=== PATIENT | male | born 1950 | race Caucasian/White ===

== ENCOUNTER 2018-08-27 10:25 | Emergency (ER) | payer OTHER, MEDICARE, BC ==
--- NOTE | 2018-08-27 11:17 | ER Document Report ---
ED Cardiac - General Mode of Arrival: Ambulatory Information source: Patient TRAVEL OUTSIDE OF THE [place] IN LAST 30 DAYS: No <USHA MALAVE - Last Filed: 08/27/18 12:29> <MONICA BUCIO - Last Filed: 08/27/18 14:33> - General Chief Complaint: Irregular Pulse Stated Complaint: CHEST PAIN Time Seen by Provider: 08/27/18 11:06 Notes: 67 year old male that presents to the emergency department today with complaints of a "shock that went across his hands bilaterally". Patient states that he was putting a spoon into yogurt when this occurred. Patient does have a defibrillator in place but states he felt nothing in his chest. Patient states he got home from vacation yesterday and noticed 2 outlets in his living room were not working. Patient states he "does not know if there is a short or something". (USHA MALAVE) - Related Data Allergies/Adverse Reactions: carvedilol [From Coreg] Allergy (Severe, Verified 08/19/15 10:50) pravastatin [Pravastatin] Allergy (Severe, Verified 08/19/15 10:50) Past Medical History - General Information source: Patient, [facility] Records - Social History Smoking Status: Former Smoker Cigarette use (# per day): No Frequency of alcohol use: None Drug Abuse: None Lives with: Family Family History: None Patient has suicidal ideation: No Patient has homicidal ideation: No - Past Medical History Cardiac Medical History: Reports: Hx Atrial Fibrillation, Hx Heart Attack, Hx Hypercholesterolemia Pulmonary Medical History: Reports: Hx COPD GI Medical History: Reports: Hx Gastroesophageal Reflux Disease Past Surgical History: Reports: Hx Abdominal Surgery - VENTRAL HERNIA, LAP, Hx Cardiac Surgery - STENT, Hx Oral Surgery, Hx Orthopedic Surgery - L ARM PERMANENT PLATES, Hx Pacemaker - w/ defib - Immunizations Hx Diphtheria, Pertussis, Tetanus Vaccination: No <USHA MALAVE - Last Filed: 08/27/18 12:29> Review of Systems - Review of Systems Constitutional: See HPI, Other - "shock" to bilateral hands EENT: No symptoms reported Cardiovascular: denies: Chest pain Respiratory: No symptoms reported Gastrointestinal: No symptoms reported Genitourinary: No symptoms reported Male Genitourinary: No symptoms reported Musculoskeletal: No symptoms reported Skin: No symptoms reported Hematologic/Lymphatic: No symptoms reported Neurological/Psychological: No symptoms reported -: Yes All other systems reviewed and negative <USHA MALAVE - Last Filed: 08/27/18 12:29> Physical Exam <USHA MALAVE - Last Filed: 08/27/18 12:29> <RUPINDERMONICA Reyes - Last Filed: 08/27/18 14:33> - Vital signs Vitals: Resp BP Pulse Ox 21 H 113/73 94 08/27/18 10:35 08/27/18 10:35 08/27/18 10:35 - Notes Notes: Physical Exam: General: Alert, appears well. HEENT: Normocephalic. Atraumatic. PERRL. Extraocular movements intact. Oropharynx clear. Neck: Supple. Non-tender. Respiratory: No respiratory distress. Faint wheeze bilaterally. Cardiovascular: Irregularly irregular, regular rate. Abdominal: Normal Inspection. Non-tender. No distension. Normal Bowel Sounds. Back: Non-tender. No deformity or step off. Extremities: Moves all four extremities. Upper extremities: Normal inspection. Normal ROM. Lower extremities: Normal inspection. No edema. Normal ROM. Neurological: Normal cognition. AAOx4. Normal speech. Psychological: Normal affect. Normal Mood. Skin: Warm. Dry. Normal color. (UHSA MALAVE) Course - Laboratory Result Diagrams: 08/27/18 10:34 <USHA MALAVE - Last Filed: 08/27/18 12:29> - Laboratory Result Diagrams: 08/27/18 10:34 08/27/18 10:34 - EKG Interpretation by Co EKG shows normal: [place], Intervals, QRS Complexes, ST-T Waves Rate: Tachycardia - 111 Rhythm: Other - Ventricular paced complexes [place]/QRS: RBBB <RUPINDERRON ReyesMONICA - Last Filed: 08/27/18 14:33> - Vital Signs Vital signs: Temp Pulse Resp BP Pulse Ox 78 10 L 112/84 92 08/27/18 10:42 08/27/18 11:02 08/27/18 11:02 08/27/18 11:02 - Laboratory Laboratory results interpreted by tx: 08/27/18 08/27/18 10:34 10:34 RDW 14.1 H Sodium 145.2 H Est GFR (Non-Af Amer) 59 L Glucose 114 H Discharge <USHA MALAVE - Last Filed: 08/27/18 12:29> <MONICA BUCIO - Last Filed: 08/27/18 14:33> - Discharge Clinical Impression: Sustained ventricular tachycardia, Defibrillator discharge Condition: Stable Disposition: HOME, SELF-CARE Additional Instructions: Your defibrillator fired today the weight was supposed to when you had a run of sustained ventricular tachycardia. Dr. White would like for you to follow-up with the heart center sometime this week. Call to make an appointment. RETURN TO THE EMERGENCY ROOM IF ANY NEW OR WORSENING SYMPTOMS. Referrals: MICHAEL CARBONE MD [Primary Care Provider] - Follow up as needed CHAZ WHITE MD [NO LOCAL MD] - Follow up in 3-5 days Scribe Attestation: 08/27/18 12:09 I personally performed the services described in the documentation, reviewed and edited the documentation which was dictated to the scribe in my presence, and it accurately records my words and actions. (MONICA BUCIO) Scribe Documentation - Scribe Written by Brandone:: Juan Horner, 08/27/2018 1242 acting as scribe for :: Rupinder <USHA MALAVE - Last Filed: 08/27/18 12:29>
[2018-08-27 12:15] LABS: ABSOLUTE BASOPHILS # (AUTO) 0.1 10^3/uL (0.0-0.2); ABSOLUTE EOSINOPHILS # (AUTO) 0.2 10^3/uL (0.0-0.6); ABSOLUTE LYMPHOCYTES (AUTO) 1.6 10^3/uL (0.5-4.7); ABSOLUTE MONOCYTES (AUTO) 0.6 10^3/uL (0.1-1.4); ABSOLUTE NEUT (AUTO) 4.7 10^3/uL (1.7-8.2); EOSINOPHILS % (AUTO) 2.2 % (0-6); HEMATOCRIT 48.3 % (37.9-51.0); HEMOGLOBIN 16.8 g/dL (13.5-17.0); LYMPHOCYTES % (AUTO) 22.3 % (13-45); MEAN CORPUSCULAR HEMOGLOBIN 32.9 pg (27.0-33.4); MEAN CORPUSCULAR HGB CONC 34.9 g/dL (32.0-36.0); MEAN CORPUSCULAR VOLUME 94 fl (80-97); MONOCYTES % (AUTO) 8.3 % (3-13); PLATELET COUNT 180 10^3/uL (150-450); RED BLOOD COUNT 5.12 10^6/uL (4.35-5.55); RED CELL DISTRIBUTION WIDTH 14.1 % (11.5-14.0); SEGMENTED NEUTROPHILS % (AUTO) 66.2 % (42-78); TOTAL CELLS COUNTED % (AUTO) 100 %; WHITE BLOOD COUNT 7.1 10^3/uL (4.0-10.5)
[2018-08-27 12:51] LABS: CREATINE KINASE MB 3.98 ng/mL (<4.55)
[2018-08-27 13:00] LABS: TROPONIN I 0.04 ng/mL
--- NOTE | 2018-08-27 13:13 | EKG REPORT ---
SEVERITY:- ABNORMAL ECG - VENTRICULAR-PACED COMPLEXES : Confirmed by: Nnamdi Ball MD 27-Aug-2018 13:12:13
[2018-08-27 13:26] LABS: ALANINE AMINOTRANSFERASE 29 U/L (21-72); ALKALINE PHOSPHATASE 84 U/L (38-126); ANION GAP 14 (5-19); ASPARTATE AMINO TRANSFERASE 28 U/L (17-59); BILIRUBIN,DIRECT 0.2 mg/dL (0.0-0.4); BLOOD UREA NITROGEN 13 mg/dL (7-20); CALCIUM 9.5 mg/dL (8.4-10.2); CARBON DIOXIDE 25 mmol/L (22-30); CHLORIDE 106 mmol/L (98-107); GLUCOSE 114 mg/dL (75-110); POTASSIUM 4.3 mmol/L (3.6-5.0); SODIUM 145.2 mmol/L (137-145); TOTAL PROTEIN 7.8 g/dL (6.3-8.2)
[2018-08-27 14:46] VITALS: BP 121/72
== END 2018-08-27 14:49 | disposition home or self-care (01) ==
LOC: ER 10:25
DX: T82.198A Other mechanical complication of other cardiac electronic device, initial encounter (principal); I47.2 Ventricular tachycardia; R07.9 Chest pain, unspecified; Z87.891 Personal history of nicotine dependence; J44.9 Chronic obstructive pulmonary disease, unspecified
CPT/HCPCS: 36415; 80053; 82550; 82553; 84484; 85025; 93005; 93010; 99285

== ENCOUNTER 2018-08-29 13:23 | Emergency (ER) | payer OTHER, MEDICARE, BC ==
[2018-08-29] MEDS ORDERED: METOPROLOL TARTRATE 50 MG TABLET ONE (13:38)
--- NOTE | 2018-08-29 13:46 | ER Document Report ---
ED General - General Chief Complaint: Medical Complaint Stated Complaint: CHEST PAIN Time Seen by Provider: 08/29/18 13:32 Notes: 67-year-old male to the emergency department chief complaint of chest pain and defibrillator going off. Patient was seen here on Sunday. Same thing happened at that time. All of a sudden felt a sharp shocking sensation that went across his chest and down his arms. Had a defibrillator pacemaker placed [address] Contreras at [facility]. States that he has been fine for the last 2 years but recently ran out of his metoprolol. Has not been taking it. Wants a refill on the metoprolol. Was recently started on isosorbide and it is not helping and it does give him a headache. Currently denies any shortness of breath or chest pain. Defibrillator went off shortly prior to arrival. TRAVEL OUTSIDE OF THE [place] IN LAST 30 DAYS: No - HPI Onset: Just prior to arrival Onset/Duration: Better Severity: Mild Pain Level: 0 Associated symptoms: None - Related Data Allergies/Adverse Reactions: carvedilol [From Coreg] Allergy (Severe, Verified 08/19/15 10:50) pravastatin [Pravastatin] Allergy (Severe, Verified 08/19/15 10:50) Past Medical History - General Information source: Patient - Social History Smoking Status: Former Smoker Cigarette use (# per day): No Frequency of alcohol use: None Drug Abuse: None Lives with: Spouse/Significant other Family History: None - Past Medical History Cardiac Medical History: Reports: Hx Atrial Fibrillation, Hx Heart Attack, Hx Hypercholesterolemia Pulmonary Medical History: Reports: Hx COPD Renal/ Medical History: Denies: Hx Peritoneal Dialysis GI Medical History: Reports: Hx Gastroesophageal Reflux Disease Past Surgical History: Reports: Hx Abdominal Surgery - VENTRAL HERNIA, LAP, Hx Cardiac Surgery - STENT, Hx Oral Surgery, Hx Orthopedic Surgery - L ARM PERMANENT PLATES, Hx Pacemaker - w/ defib - Immunizations Hx Diphtheria, Pertussis, Tetanus Vaccination: No Review of Systems - Review of Systems Notes: Constitutional: denies: Chills, Diaphoresis, Fever, Malaise, Weakness EENT: denies: Eye discharge, Blurred vision, Tearing, Double vision, Nose congestion, Nose discharge, Throat swelling, Mouth pain Cardiovascular: Was having some chest pain, palpitations, defibrillator went off. Respiratory: denies: Cough, Hurts to breathe, Wheezing, Shortness of breath Gastrointestinal: denies: Abdominal pain, Diarrhea, Nausea, Vomiting, Black stools, bright red blood in stool Genitourinary: denies: Burning, Dysuria, Discharge, Frequency, Flank pain, Hematuria Musculoskeletal: denies: Joint pain, Joint swelling, Muscle pain, Muscle stiffness, back pain Hematologic/Lymphatic: denies: Anemia, Easy bleeding, Easy bruising, Blood clots Neurological/Psychological: denies: Confusion, Dementia, Depression, Loss of consciousness Skin: No lesions, no masses, no skin breakdown, no abscesses Physical Exam - Vital signs Interpretation: Normal - General General appearance: Appears well, Alert - HEENT Head: Normocephalic, Atraumatic Eyes: Normal Pupils: PERRL - Respiratory Respiratory status: No respiratory distress Chest status: Nontender Breath sounds: Normal Chest palpation: Normal - Cardiovascular Rhythm: Regular Heart sounds: Normal auscultation Murmur: No - Abdominal Inspection: Normal Distension: No distension Bowel sounds: Normal Tenderness: Nontender Organomegaly: No organomegaly - Back Back: Normal, Nontender - Extremities General upper extremity: Normal inspection, Nontender, Normal color, Normal ROM , Normal temperature General lower extremity: Normal inspection, Nontender, Normal color, Normal ROM , Normal temperature, Normal weight bearing. No: Paige's sign - Neurological Neuro grossly intact: Yes Cognition: Normal Orientation: AAOx4 [place] Coma Scale Eye Opening: Spontaneous [place] Coma Scale Verbal: Oriented [place] Coma Scale Motor: Obeys Commands [place] Coma Scale Total: 15 Speech: Normal Motor strength normal: LUE, RUE, LLE, RLE Sensory: Normal - Psychological Associated symptoms: Normal affect, Normal mood - Skin Skin Temperature: Warm Skin Moisture: Dry Skin Color: Normal Course - Re-evaluation Re-evalutation: 08/29/18 15:31 Laboratory 08/29/18 08/29/18 08/29/18 14:10 14:10 14:10 WBC 7.3 RBC 4.52 Hgb 15.2 Hct 42.3 MCV 94 MCH 33.6 H MCHC 36.0 RDW 14.4 H Plt Count 145 L Seg Neutrophils % 60.6 Lymphocytes % 25.2 Monocytes % 10.4 Eosinophils % 2.0 Basophils % 1.8 Absolute Neutrophils 4.4 Absolute Lymphocytes 1.8 Absolute Monocytes 0.8 Absolute Eosinophils 0.1 Absolute Basophils 0.1 Sodium 141.8 Potassium 3.8 Chloride 106 Carbon Dioxide 26 Anion Gap 10 BUN 16 Creatinine 1.19 Est GFR ( Amer) > 60 Est GFR (Non-Af Amer) > 60 Glucose 90 Calcium 9.3 Total Bilirubin 0.5 Direct Bilirubin 0.2 Neonat Total Bilirubin Not Reportable Neonat Direct Bilirubin Not Reportable Neonat Indirect Bili Not Reportable AST 23 ALT 17 L Alkaline Phosphatase 64 Creatine Kinase 35 L CK-MB (CK-2) 2.95 Troponin I 0.026 Total Protein 7.2 Albumin 3.6 Chest X-Ray 08/29/18 13:46 IMPRESSION: NO ACUTE RADIOGRAPHIC FINDING IN THE CHEST. The labs are at baseline for the patient. Troponin is less than what it was a few days ago. Has no active chest pain. Currently I believe patient's pacemaker could have gone off. I am going to start him on metoprolol and advised to follow-up with his vascular radiologist. - Laboratory Result Diagrams: 08/29/18 14:10 08/29/18 14:10 Laboratory results interpreted by me: 08/29/18 08/29/18 14:10 14:10 MCH 33.6 H RDW 14.4 H Plt Count 145 L ALT 17 L Creatine Kinase 35 L - EKG Interpretation by Me Additional EKG results interpreted by me: 08/29/18 13:51 Atrial sensed paced ventricular rhythm. No elevation of ST segments. No significant change from prior. Discharge - Discharge Clinical Impression: Defibrillator discharge Condition: Good Disposition: HOME, SELF-CARE Instructions: Palpitations (Irregular or Rapid Heartrate) (OM), Chest Pain of Unclear Cause (OM) Additional Instructions: Continue with your regular medications as prescribed. In the event that symptoms are getting worse please return immediately. Prescriptions: Metoprolol Tartrate [Lopressor 50 mg Tablet] 50 mg PO DAILY 90 Days #90 tablet Referrals: MICHAEL CARBONE MD [Primary Care Provider] - Follow up as needed
[2018-08-29 14:22] LABS: ABSOLUTE BASOPHILS # (AUTO) 0.1 10^3/uL (0.0-0.2); ABSOLUTE EOSINOPHILS # (AUTO) 0.1 10^3/uL (0.0-0.6); ABSOLUTE LYMPHOCYTES (AUTO) 1.8 10^3/uL (0.5-4.7); ABSOLUTE MONOCYTES (AUTO) 0.8 10^3/uL (0.1-1.4); ABSOLUTE NEUT (AUTO) 4.4 10^3/uL (1.7-8.2); BASOPHILS % (AUTO) 1.8 % (0-2); HEMATOCRIT 42.3 % (37.9-51.0); HEMOGLOBIN 15.2 g/dL (13.5-17.0); LYMPHOCYTES % (AUTO) 25.2 % (13-45); MEAN CORPUSCULAR HEMOGLOBIN 33.6 pg (27.0-33.4); MEAN CORPUSCULAR VOLUME 94 fl (80-97); MONOCYTES % (AUTO) 10.4 % (3-13); PLATELET COUNT 145 10^3/uL (150-450); RED BLOOD COUNT 4.52 10^6/uL (4.35-5.55); RED CELL DISTRIBUTION WIDTH 14.4 % (11.5-14.0); SEGMENTED NEUTROPHILS % (AUTO) 60.6 % (42-78); TOTAL CELLS COUNTED % (AUTO) 100 %; WHITE BLOOD COUNT 7.3 10^3/uL (4.0-10.5)
[2018-08-29 14:46] LABS: ALANINE AMINOTRANSFERASE 17 U/L (21-72); ALBUMIN 3.6 g/dL (3.5-5.0); ALKALINE PHOSPHATASE 64 U/L (38-126); ANION GAP 10 (5-19); ASPARTATE AMINO TRANSFERASE 23 U/L (17-59); BILIRUBIN,DIRECT 0.2 mg/dL (0.0-0.4); BILIRUBIN,TOTAL 0.5 mg/dL (0.2-1.3); BLOOD UREA NITROGEN 16 mg/dL (7-20); CALCIUM 9.3 mg/dL (8.4-10.2); CARBON DIOXIDE 26 mmol/L (22-30); CHLORIDE 106 mmol/L (98-107); CREATINE KINASE 35 U/L (55-170); GLUCOSE 90 mg/dL (75-110); POTASSIUM 3.8 mmol/L (3.6-5.0); SODIUM 141.8 mmol/L (137-145); TOTAL PROTEIN 7.2 g/dL (6.3-8.2)
[2018-08-29 14:56] LABS: CREATINE KINASE MB 2.95 ng/mL (<4.55); TROPONIN I 0.026 ng/mL
--- NOTE | 2018-08-29 14:56 | RADIOLOGY REPORT (SQ) ---
EXAM DESCRIPTION: CHEST SINGLE VIEW COMPLETED DATE/TIME: 08/29/2018 2:38 pm REASON FOR STUDY: chest pain COMPARISON: 08/19/2015 chest films EXAM PARAMETERS: NUMBER OF VIEWS: One view. TECHNIQUE: Single frontal radiographic view of the chest acquired. RADIATION DOSE: NA LIMITATIONS: None. FINDINGS: LUNGS AND PLEURA: Upper lobes are hyperlucent from obstructive disease. No gross acute in filtrates. No pleural effusions or pneumothorax. MEDIASTINUM AND HILAR STRUCTURES: No masses. Contour normal. HEART AND VASCULAR STRUCTURES: Mild to moderate cardiomegaly, stable BONES: Osteoporotic. Old healed left lateral rib fractures HARDWARE: Right-sided dual lead pacemaker. Laparoscopic clips in the midline upper abdomen OTHER: No other significant finding. IMPRESSION: NO ACUTE RADIOGRAPHIC FINDING IN THE CHEST. TECHNICAL DOCUMENTATION: JOB ID: [id number] [employer]- All Rights Reserved Reading location - IP/workstation name: [email or web address]
[2018-08-29 15:38] VITALS: BP 137/96
--- NOTE | 2018-08-29 18:13 | EKG REPORT ---
SEVERITY:- ABNORMAL ECG - ATRIAL-SENSED VENTRICULAR-PACED RHYTHM : Confirmed by: Nnamdi Ball MD 29-Aug-2018 18:12:30
== END 2018-08-29 16:11 | disposition home or self-care (01) ==
LOC: ER 13:23
DX: R07.9 Chest pain, unspecified (principal); I48.91 Unspecified atrial fibrillation; E78.00 Pure hypercholesterolemia, unspecified; Z95.810 Presence of automatic (implantable) cardiac defibrillator; I25.2 Old myocardial infarction; Z87.891 Personal history of nicotine dependence
CPT/HCPCS: 36415; 71045; 80053; 82550; 82553; 84484; 85025; 93005; 93010; 99285

== ENCOUNTER 2018-09-15 20:20 | Emergency (ER) | payer OTHER, MEDICARE, BC ==
--- NOTE | 2018-09-15 20:45 | ER Document Report ---
ED General - General Chief Complaint: Productive Cough Stated Complaint: CHEST TIGHTNESS/COUGH Time Seen by Provider: 09/15/18 20:45 Notes: Patient is a 67-year-old male with CHF and COPD that presents to the emergency department for chief complaint of cough and shortness of breath. Patient states that the symptoms started late last week, and seemingly progressed over the course of the weekend, he has been taking his nebulizers at home, and took some DayQuil, without relief of his symptoms, has had a productive cough, with clear to green sputum, and had chest congestion, but denies having any chest pain. He notes he has been having wheezing and dyspnea on exertion. He is not on oxygen at home. Denies having any fevers, chills, night sweats, nausea, vomiting, abdominal pain, dysuria or hematuria. He does have an AICD and pacemaker, for his CHF. Past Medical History: CHF, COPD, parkinsonianism, hypertension, hyperlipidemia Past Surgical History: AICD and pacemaker placement, wrist surgery, colon resection Social History: Former smoker, denies current alcohol or drug use Family History: Reviewed and noncontributory for presenting illness Allergies: Reviewed, see documented allergy list. REVIEW OF SYSTEMS: Other than noted above, the 12 point review of systems was reviewed with the patient and were negative, all pertinent findings are included in the HPI. PHYSICAL EXAMINATION: Vital signs reviewed, nursing noted reviewed. GENERAL: Well-appearing, well-nourished and in no acute distress. HEAD: Atraumatic, normocephalic. EYES: Eyes appear normal, extraocular movements intact, sclera anicteric, conjunctiva are normal. ENT: nares patent, oropharynx clear without exudates. Moist mucous membranes. NECK: Normal range of motion, supple without lymphadenopathy LUNGS: Diffuse expiratory wheezing and rhonchi noted throughout all lung adkins , no increased work of breathing, no acute respiratory distress. HEART: Regular rate and rhythm without murmurs ABDOMEN: Soft, nontender, normoactive bowel sounds. No rebound, guarding, or rigidity. No masses appreciated. EXTREMITIES: Nontender, good range of motion, no pitting or edema. NEUROLOGICAL: No focal neurological deficits. Moves all extremities spontaneously Motor and sensory grossly intact on exam. PSYCH: Normal mood, normal affect. SKIN: Warm, Dry, normal turgor, no rashes or lesions noted on exposed skin TRAVEL OUTSIDE OF THE [place] IN LAST 30 DAYS: No - Related Data Allergies/Adverse Reactions: carvedilol [From Coreg] Allergy (Severe, Verified 09/15/18 21:39) pravastatin [Pravastatin] Allergy (Severe, Verified 09/15/18 21:39) Past Medical History - Social History Smoking Status: Former Smoker Family History: None, Reviewed & Not Pertinent - Past Medical History Cardiac Medical History: Reports: Hx Atrial Fibrillation, Hx Heart Attack, Hx Hypercholesterolemia Pulmonary Medical History: Reports: Hx COPD Renal/ Medical History: Denies: Hx Peritoneal Dialysis GI Medical History: Reports: Hx Gastroesophageal Reflux Disease Past Surgical History: Reports: Hx Abdominal Surgery - VENTRAL HERNIA, LAP, Hx Cardiac Surgery - STENT, Hx Oral Surgery, Hx Orthopedic Surgery - L ARM PERMANENT PLATES, Hx Pacemaker - w/ defib - Immunizations Hx Diphtheria, Pertussis, Tetanus Vaccination: No Physical Exam - Vital signs Vitals: Temp Pulse Resp BP Pulse Ox 97.7 F 99 18 103/80 98 09/15/18 20:26 09/15/18 20:26 09/15/18 20:26 09/15/18 20:26 09/15/18 20:26 Course - Re-evaluation Re-evalutation: Patient seen and examined vital signs reviewed. Laboratory data and imaging were ordered as appropriate for the patient's presenting symptoms and complaint, with consideration of any critical or life threatening conditions that may be associated with their obtained history and exam as noted above. Patient was treated with Medrol, DuoNeb breathing treatments, and IV magnesium Results were reviewed when available and demonstrated chest x-ray with increased interstitial markings, and my opinion feel the patient should be treated with antibiotics for possible atypical pneumonia, given the patient has structural lung disease and is high risk for pneumonia, patient was given a dose of doxycycline 100 mg p.o. The patient was re-evaluated and was improved, not hypoxic, lung sounds were improved, wheezing had resolved after treatment. Blood work was reviewed, and patient did not have leukocytosis, troponin was at his baseline, for his chronic congestive heart failure. EKG is paced rhythm, and unchanged from prior. Evaluation was most consistent with acute exacerbation of COPD, and pneumonia. Patient will be discharged home on prednisone therapy, advised to continue doing his breathing treatments, and given a prescription for doxycycline 100 mg for 7 days twice daily. Results were discussed with the patient at this point, after careful consideration I feel that that patient can be discharged from the emergency department, the patient was educated treatments and reasons to return to the emergency department based on their presumed diagnosis as noted above, they were advised to followup with a primary care physician in 2-3 days. Patient was agreeable to plan of care. *Note is created using voice recognition software and may contain spelling, syntax or grammatical errors. Laboratory 09/15/18 09/15/18 09/15/18 21:20 21:20 21:20 WBC 9.6 RBC 4.73 Hgb 15.2 Hct 44.4 MCV 94 MCH 32.1 MCHC 34.2 RDW 14.1 H Plt Count 196 Seg Neutrophils % 71.9 Lymphocytes % 17.0 Monocytes % 8.7 Eosinophils % 1.1 Basophils % 1.3 Absolute Neutrophils 6.9 Absolute Lymphocytes 1.6 Absolute Monocytes 0.8 Absolute Eosinophils 0.1 Absolute Basophils 0.1 Sodium Cancelled Potassium Cancelled Chloride Cancelled Carbon Dioxide Cancelled Anion Gap Cancelled BUN Cancelled Creatinine Cancelled Est GFR ( Amer) Cancelled Est GFR (Non-Af Amer) Cancelled Glucose Cancelled Calcium Cancelled Total Bilirubin Cancelled Direct Bilirubin Cancelled Neonat Total Bilirubin Cancelled Neonat Direct Bilirubin Cancelled Neonat Indirect Bili Cancelled AST Cancelled ALT Cancelled Alkaline Phosphatase Cancelled Troponin I Cancelled Total Protein Cancelled Albumin Cancelled 09/15/18 09/15/18 21:55 21:55 WBC RBC Hgb Hct MCV MCH MCHC RDW Plt Count Seg Neutrophils % Lymphocytes % Monocytes % Eosinophils % Basophils % Absolute Neutrophils Absolute Lymphocytes Absolute Monocytes Absolute Eosinophils Absolute Basophils Sodium 142.3 Potassium 4.2 Chloride 106 Carbon Dioxide 24 Anion Gap 12 BUN 15 Creatinine 1.19 Est GFR ( Amer) > 60 Est GFR (Non-Af Amer) > 60 Glucose 123 H Calcium 8.9 Total Bilirubin 0.2 Direct Bilirubin 0.1 Neonat Total Bilirubin Not Reportable Neonat Direct Bilirubin Not Reportable Neonat Indirect Bili Not Reportable AST 19 ALT 21 Alkaline Phosphatase 66 Troponin I 0.028 Total Protein 7.2 Albumin 3.7 Chest X-Ray 09/15/18 00:00 IMPRESSION: Mild interstitial markings. Differential diagnosis includes pulmonary edema, atypical pneumonitis, and chronic interstitial lung disease. - Vital Signs Vital signs: Temp Pulse Resp BP Pulse Ox 97.7 F 99 14 103/80 93 09/15/18 20:26 09/15/18 20:26 09/15/18 21:18 09/15/18 20:26 09/15/18 21:20 - Laboratory Result Diagrams: 09/15/18 21:20 09/15/18 21:55 Laboratory results interpreted by me: 09/15/18 09/15/18 21:20 21:55 RDW 14.1 H Glucose 123 H - EKG Interpretation by Me Additional EKG results interpreted by me: EKG demonstrates dual paced rhythm with a ventricular rate of 70 bpm, normal axis, QTC 354 ms, there are T wave inversions in leads I, aVL, V2, V4, and V5 no ST changes, this is compared with prior ECG from 08/29/2018, without significant change. Discharge - Discharge Clinical Impression: Acute exacerbation of chronic obstructive pulmonary disease (COPD) Community acquired pneumonia Qualifiers: Laterality: unspecified laterality Qualified Code(s): J18.9 - Pneumonia, unspecified organism Condition: Stable Disposition: HOME, SELF-CARE Instructions: Chronic Obstructive Lung Disease ([facility]) Additional Instructions: Please take the antibiotic doxycycline 100 mg twice daily for the next 7 days, take the prednisone 60 mg once daily for the next 5 days, please use your breathing treatments at home 4 times daily for the next 3 days, then every 4 hours as needed after that. Please follow-up with your primary care physician, call tomorrow to make an appointment for the next 2-3 days. If you have worsening of your symptoms such as increased shortness of breath, worsening cough, fevers, or difficulty breathing or feeling like he may pass out, please return to the emergency department. Prescriptions: Doxycycline Hyclate 100 mg PO BID #14 capsule Prednisone [Deltasone 20 mg Tablet] 3 tab PO DAILY 5 Days #15 tablet Referrals: MICHAEL CARBONE MD [Primary Care Provider] - Follow up in 3-5 days
[2018-09-15] MEDS ORDERED: METHYLPREDNISOLONE INJ 125 MG/2 ML SDV IV ONE (21:07)
[2018-09-15] MEDS ORDERED: IPRATROPIUM/ALBUTEROL 0.5-2.5 MG/3 ML AMPUL NEB ONE (21:07)
[2018-09-15] MEDS ORDERED: MAGNESIUM SULFATE/D5W 1 GM/100 ML RTUPB IV ONE (21:07)
[2018-09-15] MEDS ORDERED: BUDESONIDE NEB 0.5 MG/2 ML AMPUL NEB ONE (21:07)
[2018-09-15 21:35] LABS: ABSOLUTE BASOPHILS # (AUTO) 0.1 10^3/uL (0.0-0.2); ABSOLUTE EOSINOPHILS # (AUTO) 0.1 10^3/uL (0.0-0.6); ABSOLUTE LYMPHOCYTES (AUTO) 1.6 10^3/uL (0.5-4.7); ABSOLUTE MONOCYTES (AUTO) 0.8 10^3/uL (0.1-1.4); ABSOLUTE NEUT (AUTO) 6.9 10^3/uL (1.7-8.2); BASOPHILS % (AUTO) 1.3 % (0-2); EOSINOPHILS % (AUTO) 1.1 % (0-6); HEMATOCRIT 44.4 % (37.9-51.0); HEMOGLOBIN 15.2 g/dL (13.5-17.0); MEAN CORPUSCULAR HEMOGLOBIN 32.1 pg (27.0-33.4); MEAN CORPUSCULAR HGB CONC 34.2 g/dL (32.0-36.0); MEAN CORPUSCULAR VOLUME 94 fl (80-97); MONOCYTES % (AUTO) 8.7 % (3-13); PLATELET COUNT 196 10^3/uL (150-450); RED BLOOD COUNT 4.73 10^6/uL (4.35-5.55); RED CELL DISTRIBUTION WIDTH 14.1 % (11.5-14.0); SEGMENTED NEUTROPHILS % (AUTO) 71.9 % (42-78); TOTAL CELLS COUNTED % (AUTO) 100 %; WHITE BLOOD COUNT 9.6 10^3/uL (4.0-10.5)
[2018-09-15 22:23] LABS: ALANINE AMINOTRANSFERASE 21 U/L (21-72); ALBUMIN 3.7 g/dL (3.5-5.0); ALKALINE PHOSPHATASE 66 U/L (38-126); ANION GAP 12 (5-19); ASPARTATE AMINO TRANSFERASE 19 U/L (17-59); BILIRUBIN,DIRECT 0.1 mg/dL (0.0-0.4); BILIRUBIN,TOTAL 0.2 mg/dL (0.2-1.3); BLOOD UREA NITROGEN 15 mg/dL (7-20); CALCIUM 8.9 mg/dL (8.4-10.2); CARBON DIOXIDE 24 mmol/L (22-30); CHLORIDE 106 mmol/L (98-107); GLUCOSE 123 mg/dL (75-110); POTASSIUM 4.2 mmol/L (3.6-5.0); SODIUM 142.3 mmol/L (137-145); TOTAL PROTEIN 7.2 g/dL (6.3-8.2)
--- NOTE | 2018-09-15 22:41 | RADIOLOGY REPORT (SQ) ---
EXAM DESCRIPTION: XR CHEST 1 VIEW COMPLETED DATE/TME: 09/15/2018 00:00 CLINICAL HISTORY: 67 years Male, COUGH, DIFFICULTY BREATHING COMPARISON: 10.29.15 NUMBER OF VIEWS/TECHNIQUE: 1/AP FINDINGS: Increased lung volume, small bilateral lower lobar atelectasis or scar, mild interstitial markings, normal cardiac silhouette, and intact bony thorax. Right cardiac stimulator with leads. IMPRESSION: Mild interstitial markings. Differential diagnosis includes pulmonary edema, atypical pneumonitis, and chronic interstitial lung disease.
[2018-09-15] MEDS ORDERED: DOXYCYCLINE HYCLATE 100 MG TABLET PO ONE (22:45)
--- NOTE | 2018-09-15 22:45 | EKG REPORT ---
SEVERITY:- ABNORMAL ECG - A-V DUAL-PACED RHYTHM WITH SOME INHIBITION : Confirmed by: Elena Lema MD 15-Sep-2018 22:44:55
[2018-09-15 23:46] VITALS: BP 115/86
== END 2018-09-15 23:46 | disposition home or self-care (01) ==
LOC: ER 20:20
DX: J44.1 Chronic obstructive pulmonary disease with (acute) exacerbation (principal); R05 Cough; R07.9 Chest pain, unspecified; R06.02 Shortness of breath; I10 Essential (primary) hypertension; Z87.891 Personal history of nicotine dependence; I50.9 Heart failure, unspecified; Z95.810 Presence of automatic (implantable) cardiac defibrillator
CPT/HCPCS: 93005; 94640 ×2; 99284; 96375; 96365; 36415; 85025; 80053; 84484; 71045; 93010; J2930; J3475; J7620

== ENCOUNTER 2019-10-08 20:41 | Emergency (ER) | payer OTHER, MEDICARE, BC ==
[2019-10-08 21:27] LABS: ABSOLUTE BASOPHILS # (AUTO) 0.2 10^3/uL (0.0-0.2); ABSOLUTE EOSINOPHILS # (AUTO) 0.2 10^3/uL (0.0-0.6); ABSOLUTE MONOCYTES (AUTO) 0.9 10^3/uL (0.1-1.4); ABSOLUTE NEUT (AUTO) 5.8 10^3/uL (1.7-8.2); BASOPHILS % (AUTO) 2.2 % (0-2); EOSINOPHILS % (AUTO) 2.2 % (0-6); HEMATOCRIT 45.7 % (37.9-51.0); HEMOGLOBIN 15.5 g/dL (13.5-17.0); LYMPHOCYTES % (AUTO) 21.8 % (13-45); MEAN CORPUSCULAR HEMOGLOBIN 30.1 pg (27.0-33.4); MEAN CORPUSCULAR VOLUME 89 fl (80-97); MONOCYTES % (AUTO) 10.1 % (3-13); PLATELET COUNT 209 10^3/uL (150-450); RED BLOOD COUNT 5.16 10^6/uL (4.35-5.55); RED CELL DISTRIBUTION WIDTH 14.7 % (11.5-14.0); SEGMENTED NEUTROPHILS % (AUTO) 63.7 % (42-78); TOTAL CELLS COUNTED % (AUTO) 100 %; WHITE BLOOD COUNT 9.1 10^3/uL (4.0-10.5)
--- NOTE | 2019-10-08 21:33 | EKG REPORT ---
SEVERITY:- ABNORMAL ECG - ATRIAL-SENSED VENTRICULAR-PACED RHYTHM : Confirmed by: Magnus Carl 08-Oct-2019 21:33:14
[2019-10-08 21:43] LABS: ALKALINE PHOSPHATASE 79 U/L (38-126); ANION GAP 14 (5-19); ASPARTATE AMINO TRANSFERASE 25 U/L (17-59); BILIRUBIN,DIRECT 0.2 mg/dL (0.0-0.4); BILIRUBIN,TOTAL 0.4 mg/dL (0.2-1.3); BLOOD UREA NITROGEN 14 mg/dL (7-20); CALCIUM 9.4 mg/dL (8.4-10.2); CARBON DIOXIDE 25 mmol/L (22-30); CHLORIDE 101 mmol/L (98-107); CREATINE KINASE 45 U/L (55-170); GLUCOSE 115 mg/dL (75-110); POTASSIUM 4.1 mmol/L (3.6-5.0); TOTAL PROTEIN 7.9 g/dL (6.3-8.2)
[2019-10-08 21:55] LABS: CREATINE KINASE MB 3.2 ng/mL (<4.55); TROPONIN I 0.015 ng/mL
[2019-10-08] MEDS ORDERED: METHYLPREDNISOLONE INJ 125 MG/2 ML SDV IV ONE (23:20)
[2019-10-08] MEDS ORDERED: IPRATROPIUM/ALBUTEROL 0.5-2.5 MG/3 ML AMPUL NEB ONE (23:20)
--- NOTE | 2019-10-08 23:40 | ER Document Report ---
ED General - General Chief Complaint: Chest Pain Stated Complaint: CHEST PAIN Time Seen by Provider: 10/08/19 22:58 Primary Care Provider: MICHAEL CARBONE MD [Primary Care Provider] - Follow up as needed TRAVEL OUTSIDE OF THE [place] IN LAST 30 DAYS: No - HPI Notes: Patient is a 68-year-old male with a history of COPD, CHF with ejection fraction less than 30%, CAD with IN in 2004, AICD placement in 2017 and on Xarelto who presents complaining of feeling a dull midsternal chest pressure/pain that began about an hour prior to arrival. Patient says the pain does not radiate. He has had an occasional cough over the past few days, but this does not worsen his symptoms. Patient states that this feels similar to when he had an IN in the past. He otherwise has been eating and drinking without difficulty. He is urinating normally. Patient states that his blood pressure usually runs low. Denies any headache, fever, neck pain, URI, sore throat, palpitations, syncope, shortness of breath, dyspnea, abdominal pain, nausea/vomiting/diarrhea, urinary retention, dysuria, hematuria, or rash. - Related Data Allergies/Adverse Reactions: carvedilol [From Coreg] Allergy (Severe, Verified 09/15/18 21:39) pravastatin [Pravastatin] Allergy (Severe, Verified 09/15/18 21:39) Past Medical History - Social History Smoking Status: Former Smoker Family History: None, Reviewed & Not Pertinent Patient has suicidal ideation: No Patient has homicidal ideation: No - Past Medical History Cardiac Medical History: Reports: Hx Atrial Fibrillation, Hx Heart Attack, Hx Hypercholesterolemia Pulmonary Medical History: Reports: Hx COPD Renal/ Medical History: Denies: Hx Peritoneal Dialysis GI Medical History: Reports: Hx Gastroesophageal Reflux Disease Past Surgical History: Reports: Hx Abdominal Surgery - VENTRAL HERNIA, LAP, Hx Cardiac Surgery - STENT, Hx Oral Surgery, Hx Orthopedic Surgery - L ARM PERMANENT PLATES, Hx Pacemaker - w/ defib - Immunizations Hx Diphtheria, Pertussis, Tetanus Vaccination: No Review of Systems - Review of Systems -: Yes All other systems reviewed and negative Physical Exam - Vital signs Vitals: Resp Pulse Ox 14 95 10/08/19 20:54 10/08/19 20:54 - Notes Notes: PHYSICAL EXAMINATION: GENERAL: Well-appearing, well-nourished and in no acute distress. HEAD: Atraumatic, normocephalic. EYES: Pupils equal round and reactive to light, extraocular movements intact, sclera anicteric, conjunctiva are normal. ENT: Nares patent and without discharge. oropharynx clear without exudates. No tonsilar hypertrophy or erythema. Moist mucous membranes. NECK: Normal range of motion, supple without lymphadenopathy LUNGS: scant b/l expiratory wheeze. no retractions. HEART: Regular rate and rhythm ABDOMEN: Soft, nontender, nondistended abdomen. No guarding, no rebound. Normal bowel sounds present. No CVA tenderness bilaterally. Musculoskeletal: FROM to passive/active. Strength 5+/5. Paige neg. No asymmetry to LE's. Extremities: No cyanosis, clubbing, or edema b/l. Peripheral pulses 2+. Capillary refill less than 3 seconds. NEUROLOGICAL: Normal speech, normal gait. PSYCH: Normal mood, normal affect. SKIN: Warm, Dry, normal turgor, no rashes or lesions noted. Course - Re-evaluation Re-evalutation: 10/09/19 01:[address] Ding who is in agreement with dispo/plan: Patient is an afebrile, well-hydrated 68-year-old male who presents to the ED with cough, copd exacerbation, and atypical chest pain suspect 2ndary to his coughing. Vitals are acceptable without any significant tachycardia, tachypnea, or hypoxia. PE is otherwise unremarkable. Lungs are now CTAB after treatment. Pt states that he had significant improvement after steroid and breathing treatment. Patient is nontoxic-appearing and is tolerating p.o. without any difficulties. Pt is currently asymptomatic. CBC, CMP, BNP, EKG/cardiac enzymes 2, chest x-ray are all unremarkable for any acute pathology. Pt [facility] He states that he can call his local director loan in the morning. His desire is to go home vs admission and he would return if anything worsens. Patient does not have any chest pain, dyspnea, or shortness of breath. Patient's presentation and symptomatology creates lower suspicion for ACS (pt aware that we cannot completely r/o with our current tests, etc), PE, pneumothorax, pericarditis, dissection, respiratory compromise, severe dehydration, sepsis, meningitis, or other systemic emergent condition at this time. Patient is aware that his condition can change from initial presentation and he needs to monitor symptoms closely and seek medical attention for any acute changes. Pt is feeling better and would like to go home. Recommend conservative measures for symptoms. Recheck with your PCM in 2-3 days. Call your director loan first thing in the morning. Return to the ED with any worsening/concerning symptoms otherwise as reviewed in discharge. Patient is in agreement. - Vital Signs Vital signs: Temp Pulse Resp BP Pulse Ox 98.9 F 16 92/70 L 95 10/08/19 22:12 10/08/19 22:12 10/08/19 22:12 10/08/19 22:11 - Laboratory Result Diagrams: 10/08/19 21:04 10/08/19 21:04 Laboratory results interpreted by me: 10/08/19 10/08/19 10/08/19 21:04 21:04 21:12 RDW 14.7 H Baso % (Auto) 2.2 H Creatinine 1.33 H Est GFR (MDRD) Non-Af 53 L Glucose 115 H Creatine Kinase 45 L NT-Pro-B Natriuret Pep 472 H Discharge - Discharge Clinical Impression: COPD exacerbation, Atypical chest pain Condition: Stable Disposition: HOME, SELF-CARE Instructions: Chest Pain of Unclear Cause ([facility]) Additional Instructions: Maintain adequate fluid and food intake Take home medications as directed Low sodium/fat diet Monitor blood pressure daily and keep a log Monitor symptoms for any acute changes Recheck with your PCM in 2-3 days Call your director loan first thing in the morning* Return to the ED with any worsening symptoms and/or development of fever, headache, chest pain, palpitations, syncope, shortness of breath, trouble breathing, abdominal pain, n/v/d, blood in stool/urine, loss of control of bowel/bladder, urinary retention, muscle weakness/paralysis, numbness/tingling, or other worsening symptoms that are concerning to you. Prescriptions: Prednisone [Deltasone 20 mg Tablet] 3 tab PO DAILY 4 Days tablet Doxycycline Hyclate 100 mg PO BID #20 capsule Referrals: MICHAEL CARBONE MD [Primary Care Provider] - 10/10/19
--- NOTE | 2019-10-08 23:49 | RADIOLOGY REPORT (SQ) ---
XR CHEST 1 VIEW EXAM DATE: 10/08/2019 11:02 PM [employer] HISTORY: Chest pain. COMPARISON: None. FINDINGS: Normal heart size without pulmonary edema. The lungs are clear. No pleural effusions or pneumothorax. There is a multilead left chest wall pacemaker noted. IMPRESSION: No evidence of acute cardiopulmonary disease.
[2019-10-09 02:13] VITALS: BP 104/69
== END 2019-10-09 02:13 | disposition home or self-care (01) ==
LOC: ER 20:41
DX: J44.1 Chronic obstructive pulmonary disease with (acute) exacerbation (principal); R07.89 Other chest pain; R05 Cough; I50.9 Heart failure, unspecified; I25.10 Atherosclerotic heart disease of native coronary artery without angina pectoris; I25.2 Old myocardial infarction; Z87.891 Personal history of nicotine dependence
CPT/HCPCS: 93005; 94640; 99285; 96374; 36415; 82553; 82550; 85025; 80053; 84484; 83880; 71045; 93010; J2930; J7620

== ENCOUNTER 2019-12-24 15:15 | Inpatient (IN) | payer OTHER, MEDICARE, BC ==
--- NOTE | 2019-12-24 15:50 | ER Document Report ---
ED Medical Screen (RME) - General Chief Complaint: Fall Injury Stated Complaint: FALL/LEG PAIN Time Seen by Provider: 12/24/19 15:44 Primary Care Provider: MICHAEL CARBONE MD [Primary Care Provider] - Follow up as needed Mode of Arrival: Wheelchair Information source: Patient Notes: 78 -year-old male presented to ED for complaint of pain, redness, and swelling to the left leg after he fell yesterday. He does have redness up to almost his knee with bruising and redness and swelling to the lower leg foot and ankle. Pulse is very irregular in the pit area O2 sat is 97% I have greeted and performed a rapid initial assessment of this patient. A comprehensive ED assessment and evaluation of the patient, analysis of test results and completion of medical decision making process will be conducted by an additional ED providers. TRAVEL OUTSIDE OF THE [place] IN LAST 30 DAYS: No - Related Data Allergies/Adverse Reactions: carvedilol [From Coreg] Allergy (Severe, Verified 09/15/18 21:39) pravastatin [Pravastatin] Allergy (Severe, Verified 09/15/18 21:39) Past Medical History - Past Medical History Cardiac Medical History: Reports: Hx Atrial Fibrillation, Hx Heart Attack, Hx Hypercholesterolemia Pulmonary Medical History: Reports: Hx COPD Renal/ Medical History: Denies: Hx Peritoneal Dialysis GI Medical History: Reports: Hx Gastroesophageal Reflux Disease Past Surgical History: Reports: Hx Abdominal Surgery - VENTRAL HERNIA, LAP, Hx Cardiac Surgery - STENT, Hx Oral Surgery, Hx Orthopedic Surgery - L ARM PERMANENT PLATES, Hx Pacemaker - w/ defib - Immunizations Hx Diphtheria, Pertussis, Tetanus Vaccination: No Doctor's Discharge - Discharge Referrals: MICHAEL CARBONE MD [Primary Care Provider] - Follow up as needed
--- NOTE | 2019-12-24 16:30 | RADIOLOGY REPORT (SQ) ---
EXAM DESCRIPTION: CHEST 2 VIEWS COMPLETED DATE/TIME: 12/24/2019 3:21 pm REASON FOR STUDY: Very irregular heart rate COMPARISON: None. EXAM PARAMETERS: NUMBER OF VIEWS: two views TECHNIQUE: Digital Frontal and Lateral radiographic views of the chest acquired. RADIATION DOSE: NA LIMITATIONS: none FINDINGS: LUNGS AND PLEURA: Lungs are hyperinflated. No focal consolidation or pleural effusion. N o pneumothorax. MEDIASTINUM AND HILAR STRUCTURES: No masses or contour abnormalities. HEART AND VASCULAR STRUCTURES: Heart normal size. No evidence for failure. BONES: No acute findings. HARDWARE: Right infraclavicular pacemaker/ AICD. OTHER: No other significant finding. IMPRESSION: Hyperinflated lungs which can be seen with obstructive lung disease. No acute cardiopul monary disease. TECHNICAL DOCUMENTATION: JOB ID: [id number] 2010 [employer]- All Rights Reserved Reading location - IP/workstation name: [email or web address]
--- NOTE | 2019-12-24 16:32 | RADIOLOGY REPORT (SQ) ---
EXAM DESCRIPTION: ANKLE LEFT COMPLETE COMPLETED DATE/TIME: 12/24/2019 4:21 pm REASON FOR STUDY: Fall left ankle and knee pain COMPARISON: None. NUMBER OF VIEWS: Three views. TECHNIQUE: AP, lateral, and oblique radiographic images acquired of the left ankle. LIMITATIONS: None. FINDINGS: MINERALIZATION: Osteopenia. BONES: Acute avulsion fracture of the medial malleolus and an acute displaced and comminuted fracture of the distal fibula. The talar dome is intact. JOINTS: The ankle mortise is intact. SOFT TISSUES: Bimalleolar soft tissue swelling. OTHER: No other finding. IMPRESSION: 1. Acute avulsion fracture of the medial malleolus. 2. Acute displaced and comminuted fracture of the distal fibula. TECHNICAL DOCUMENTATION: JOB ID: [id number] 2010 [employer]- All Rights Reserved Reading location - IP/workstation name: [email or web address]
--- NOTE | 2019-12-24 16:34 | RADIOLOGY REPORT (SQ) ---
EXAM DESCRIPTION: KNEE LEFT 4 VIEW COMPLETED DATE/TIME: 12/24/2019 4:21 pm REASON FOR STUDY: Fall left ankle and knee pain COMPARISON: None. NUMBER OF VIEWS: Four views. TECHNIQUE: AP, lateral, and both oblique radiographic images acquired of the left knee. LIMITATIONS: None. FINDINGS: MINERALIZATION: Normal. BONES: No acute fracture or dislocation. No osseous lesion. JOINT: No effusion. SOFT TISSUES: No soft tissue swelling. The quadriceps and patellar tendon silhouettes are intact. OTHER: No other finding. IMPRESSION: No acute osseous abnormality of the left knee. TECHNICAL DOCUMENTATION: JOB ID: [id number] 2010 [employer]- All Rights Reserved Reading location - IP/workstation name: [email or web address]
[2019-12-24 17:21] LABS: ABSOLUTE BASOPHILS # (AUTO) 0.1 10^3/uL (0.0-0.2); ABSOLUTE LYMPHOCYTES (AUTO) 1.6 10^3/uL (0.5-4.7); ABSOLUTE MONOCYTES (AUTO) 1.5 10^3/uL (0.1-1.4); ABSOLUTE NEUT (AUTO) 10.7 10^3/uL (1.7-8.2); EOSINOPHILS % (AUTO) 0.3 % (0-6); LYMPHOCYTES % (AUTO) 11.7 % (13-45); MEAN CORPUSCULAR HEMOGLOBIN 30.1 pg (27.0-33.4); MEAN CORPUSCULAR HGB CONC 33.4 g/dL (32.0-36.0); MEAN CORPUSCULAR VOLUME 90 fl (80-97); MONOCYTES % (AUTO) 10.4 % (3-13); PLATELET COUNT 172 10^3/uL (150-450); RED BLOOD COUNT 4.66 10^6/uL (4.35-5.55); RED CELL DISTRIBUTION WIDTH 16.7 % (11.5-14.0); SEGMENTED NEUTROPHILS % (AUTO) 76.6 % (42-78); TOTAL CELLS COUNTED % (AUTO) 100 %
[2019-12-24 17:43] LABS: ALKALINE PHOSPHATASE 70 U/L (38-126); ANION GAP 10 (5-19); ASPARTATE AMINO TRANSFERASE 25 U/L (17-59); BILIRUBIN,TOTAL 1.8 mg/dL (0.2-1.3); BLOOD UREA NITROGEN 20 mg/dL (7-20); CALCIUM 9.2 mg/dL (8.4-10.2); CARBON DIOXIDE 25 mmol/L (22-30); CHLORIDE 102 mmol/L (98-107); GLUCOSE 103 mg/dL (75-110); POTASSIUM 4.6 mmol/L (3.6-5.0); TOTAL PROTEIN 7.5 g/dL (6.3-8.2)
--- NOTE | 2019-12-24 18:00 | ER Document Report ---
ED General - General Chief Complaint: Fall Injury Stated Complaint: FALL/LEG PAIN Time Seen by Provider: 12/24/19 15:44 Mode of Arrival: Wheelchair Information source: Patient, Relative Notes: Patient is a 69-year-old male presenting to the emergency department chief complaint of left ankle pain. Patient states that he fell down approximately 3 stairs yesterday injuring his left ankle he states that he waited a day because he did not want to be in the hospital occupying a bed. Patient does have multiple medical issues. Patient presents complaining of pain to the left ankle and also left wrist where he injured it yesterday during the fall. Patient denies dizziness chest pain shortness of breath or palpitations prior to the fall. TRAVEL OUTSIDE OF THE [place] IN LAST 30 DAYS: No - HPI Onset: Yesterday Onset/Duration: Sudden Quality of pain: Pressure, Throbbing Severity: Moderate Pain Level: 3 Associated symptoms: None Exacerbated by: Standing, Movement, Walking Relieved by: Denies Similar symptoms previously: No Recently seen / treated by doctor: No - Related Data Allergies/Adverse Reactions: carvedilol [From Coreg] Allergy (Severe, Verified 09/15/18 21:39) pravastatin [Pravastatin] Allergy (Severe, Verified 09/15/18 21:39) Past Medical History - General Information source: Patient, Relative - Social History Smoking Status: Former Smoker Chew tobacco use (# tins/day): No Frequency of alcohol use: None Drug Abuse: None Lives with: Spouse/Significant other Family History: None, Reviewed & Not Pertinent Patient has suicidal ideation: No Patient has homicidal ideation: No - Past Medical History Cardiac Medical History: Reports: Hx Atrial Fibrillation, Hx Heart Attack, Hx Hypercholesterolemia Pulmonary Medical History: Reports: Hx COPD Renal/ Medical History: Denies: Hx Peritoneal Dialysis GI Medical History: Reports: Hx Gastroesophageal Reflux Disease Past Surgical History: Reports: Hx Abdominal Surgery - VENTRAL HERNIA, LAP, Hx Cardiac Surgery - STENT, pacemaker/defibrillator, Hx Oral Surgery, Hx Orthopedic Surgery - L ARM PERMANENT PLATES, Hx Pacemaker - w/ defib - Immunizations Hx Diphtheria, Pertussis, Tetanus Vaccination: No Review of Systems - Review of Systems Notes: REVIEW OF SYSTEMS: CONSTITUTIONAL : Denies fever, chills, or sweats. Denies recent illness. EENT: Denies eye, ear, throat, or mouth pain or symptoms. Denies nasal or sinus congestion. CARDIOVASCULAR: Denies chest pain. RESPIRATORY: Denies cough, cold, or chest congestion. Denies shortness of breath, difficulty breathing, or wheezing. GASTROINTESTINAL: Denies abdominal pain. Denies nausea, vomiting, or diarrhea. Denies constipation. GENITOURINARY: Denies difficulty urinating, painful urination, burning, frequency, or blood in urine. MUSCULOSKELETAL: Pain to the left forearm. Patient also is complaining of pain to the left ankle with swelling and discoloration. Patient states that it hurts to move it let alone put any weight on it. SKIN: Denies rash or skin lesions. HEMATOLOGIC : Denies easy bruising or bleeding. NEUROLOGICAL: Denies altered mental status or loss of consciousness. Denies headache. Denies weakness or paralysis or loss of use of either side. Denies problems with gait or speech. Patient reports distal neuropathy. PSYCHIATRIC: Denies suicidal or homicidal ideations 10 Systems are negative unless otherwise specified above Physical Exam - Vital signs Vitals: Pulse BP Pulse Ox 80 92/60 L 97 12/24/19 15:43 12/24/19 15:43 12/24/19 15:43 - Notes Notes: PHYSICAL EXAMINATION: GENERAL: Well-appearing, well-nourished and in mild distress. HEAD: Atraumatic, normocephalic. EYES: Pupils equal round and reactive to light, extraocular movements intact, sclera anicteric, conjunctiva are normal. ENT: nares patent, oropharynx clear without exudates. Moist mucous membranes. NECK: Normal range of motion, supple without lymphadenopathy, no appreciable JVD LUNGS: Lungs demonstrate rhonchi and end expiratory wheezes left greater than right HEART: Regular rate and rhythm without murmurs ABDOMEN: Soft, nontender, normal bowel sounds. No guarding, no rebound. No masses appreciated. EXTREMITIES: Pulses 2+ to the bilateral upper extremities and right lower extremity, left forearm has abrasion to the posterior medial aspect. Left ankle is swollen ecchymotic tender to palpation. Patient has reported decreased sen sation to bilateral lower extremities. NEUROLOGICAL: No focal neurological deficits. Moves all extremities spontaneously and on command. SKIN: Warm, Dry, and intact. Normal turgor, no rashes or lesions noted. Course - Re-evaluation Re-evalutation: 12/24/19 20:44 Patient has been maintained on a utility clerk while in the emergency department. Patient stated that as long as he was not being moved around he was able to tolerate the pain. I did discuss with the patient and his the need for admission secondary to his peripheral neuropathy and my concern for a secondary fall before even having the fracture fixated. Patient and are agreeable with care plan. I did speak with the orthopedist Dr. Garces who requ ests because of patient's medical comorbidities that he be admitted under medicine for further evaluation and he would see the patient in the morning. I spoke with the hospitalist who is agreeable with admission. Patient is stable at time of admission. - Vital Signs Vital signs: Temp Pulse Resp BP Pulse Ox 99.6 F 72 16 75/41 L 95 12/24/19 20:00 12/24/19 20:00 12/24/19 20:00 12/24/19 20:00 12/24/19 20:00 - Laboratory Result Diagrams: 12/24/19 17:00 12/24/19 17:00 Laboratory results interpreted by me: 12/24/19 12/24/19 12/24/19 17:00 17:00 17:00 WBC 14.0 H RDW 16.7 H Lymph % (Auto) 11.7 L Absolute Neuts (auto) 10.7 H Absolute Monos (auto) 1.5 H Sodium 136.7 L Creatinine 1.48 H Est GFR ( Amer) 57 L Est GFR (MDRD) Non-Af 47 L Total Bilirubin 1.8 H NT-Pro-B Natriuret Pep 742 H - Diagnostic Test Radiology reviewed: Reports reviewed - EKG Interpretation by Me When compared to previous EKG there are: Changes noted Additional EKG results interpreted by me: 12/24/19 18:03 EKG demonstrates atrial sensed ventricularly paced rhythm with an incomplete left bundle branch block rate of 110 bpm. Similar to prior EKG. Discharge - Discharge Clinical Impression: Accidental fall Qualifiers: Encounter type: initial encounter Qualified Code(s): W19.XXXA - Unspecified fall, initial encounter Fibula fracture Qualifiers: Encounter type: initial encounter Fibula location: distal Fracture type: closed Fracture morphology: unspecified fracture morphology Laterality: left Qualified Code(s): S82.832A - Other fracture of upper and lower end of left fibula, initial encounter for closed fracture Medial malleolar fracture Qualifiers: Encounter type: initial encounter Fracture type: closed Fracture alignment: displaced Laterality: left Qualified Code(s): S82.52XA - Displaced fracture of medial malleolus of left tibia, initial encounter for closed fracture Condition: Stable Disposition: ADMITTED INPATIENT Admitting Provider: Jefferson (Hospitalist) Unit Admitted: Medical Floor
[2019-12-24] MEDS ORDERED: DIPH/PERTUSS(ACELL)/TETANUS VAC/PF 0.5 ML SYR (>=10YO) IM ONE (18:06)
[2019-12-24] MEDS ORDERED: NORMAL SALINE 500 ML IV ONE (18:06)
--- NOTE | 2019-12-24 18:39 | EKG REPORT ---
SEVERITY:- ABNORMAL ECG - ATRIAL-SENSED VENTRICULAR-PACED COMPLEXES INCOMPLETE LEFT BUNDLE BRANCH BLOCK LOW VOLTAGE THROUGHOUT NONSPECIFIC ST DEPRESSION, LATERAL LEADS : Confirmed by: Nnamdi Ball MD 24-Dec-2019 18:38:48
[2019-12-24] MEDS ORDERED: ONDANSETRON 4 MG TAB.RAPDIS PO PRN (18:46)
[2019-12-24] MEDS ORDERED: NORMAL SALINE 1000 ML 1,000 ML IV PRN (18:46)
[2019-12-24] MEDS ORDERED: ONDANSETRON HCL INJ/PF 4 MG/2 ML SDV IV PRN (18:46)
[2019-12-24] MEDS ORDERED: METOPROLOL SUCCINATE 25 MG TAB.SR.24H PO ONE (18:57)
--- NOTE | 2019-12-24 19:11 | PDOC H&P ---
History of Present Illness Admission Date/PCP: 12/24/19 18:43 MICHAEL CARBONE MD History of Present Illness: SAUNDRA VILLEDA is a 69 year old male yesterday tripped while going down the stairs striking his left leg he said yesterday it was somewhat tender but today it was hurting very bad so he came to the emergency room for left leg pain. X Rays of the left leg show acute avulsion fracture of the medial malleolus and acute displaced and comminuted fracture of the distal fibula. We were asked to put the patient in for evaluation concerning surgery of his fracture and his cardiac risk.. I have called Dr. Rich the carton forming machine adjuster on- call for the unassigned and he said he be glad to see the patient tomorrow morning and begin the work-up and evaluation. Patient [facility]. Patient had an ND 2004 with 1 stent. Patient had AICD placed in 2016. Patient reportedly has an ejection fracture less than 30% Patient states he always runs a low blood pressure for years and years. Today in the emergency room his blood pressure 79/52 which he states is not unusual. 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 She stopped smoking 3 years ago he was at 1 pack/day patient stopped drinking alcohol in 2008. Past Medical History Cardiac Medical History: Reports: Atrial Fibrillation, Myocardial Infarction, Hyperlipidema Pulmonary Medical History: Reports: Chronic Obstructive Pulmonary Disease (COPD) GI Medical History: Reports: Gastroesophageal Reflux Disease Past Surgical History Past Surgical History: Reports: Orthopedic Surgery - L ARM PERMANENT PLATES, Pacemaker - w/ defib Social History Lives with: Spouse/Significant other Smoking Status: Former Smoker Electronic Cigarette use?: No - Advance Directive Resuscitation Status: Full Code Family History Family History: None, Reviewed & Not Pertinent Parental Family History Reviewed: No Children Family History Reviewed: No Sibling(s) Family History Reviewed.: No Medication/Allergy Home Medications: Albuterol Sulfate [Proair Respiclick] 1 inh IH Q6H PRN 08/19/15 Albuterol Sulfate [Ventolin 0.042% Neb 1.25 mg/3 mL Ampul] 1 inh IH QID 08/19/15 Budesonide [Pulmicort 180 mcg Flexhaler] 2 puff IH BID 08/19/15 Cyanocobalamin (Vitamin B-12) [B-12] 1,000 mcg PO DAILY 08/19/15 Metoprolol Tartrate 0.5 tab PO BID 08/19/15 Omeprazole 20 mg PO DAILY 08/19/15 Tiotropium [place] [Spiriva Handihaler 18 mcg/dose (30 Dose)] 1 cap IH DAILY 08/19/15 Metoprolol Tartrate [Lopressor 50 mg Tablet] 50 mg PO DAILY 90 Days #90 tablet 08/29/18 Doxycycline Hyclate 100 mg PO BID #14 capsule 09/15/18 Prednisone [Deltasone 20 mg Tablet] 3 tab PO DAILY 5 Days #15 tablet 09/15/18 Doxycycline Hyclate 100 mg PO BID #20 capsule 10/09/19 Prednisone [Deltasone 20 mg Tablet] 3 tab PO DAILY 4 Days tablet 10/09/19 Allergies/Adverse Reactions: carvedilol [From Coreg] Allergy (Severe, Verified 09/15/18 21:39) pravastatin [Pravastatin] Allergy (Severe, Verified 09/15/18 21:39) Review of Systems Constitutional: ABSENT: chills, fever(s), headache(s), weight gain, weight loss Cardiovascular: ABSENT: chest pain, dyspnea on exertion, edema, orthropnea, palpitations Respiratory: ABSENT: cough, hemoptysis Neurological: ABSENT: abnormal gait, abnormal speech, confusion, dizziness, focal weakness, syncope Physical Exam Vital Signs: Temp Pulse Resp BP Pulse Ox 98.2 F 103 H 16 102/47 L 96 12/24/19 15:50 12/24/19 15:50 12/24/19 18:31 12/24/19 18:31 12/24/19 18:31 Intake & Output 12/23/19 12/24/19 12/25/19 06:59 06:59 06:59 Intake Total 500 Balance 500 Weight 97.522 kg General appearance: PRESENT: mild distress Respiratory exam: PRESENT: clear to auscultation santosh. ABSENT: rales, rhonchi, w heezes Cardiovascular exam: PRESENT: RRR. ABSENT: diastolic murmur, rubs, systolic murmur Extremities exam: PRESENT: joint swelling, other - Bruising about the medial malleolus on the left range of motion secondary to pain Results Laboratory Results: 12/24/19 17:00 12/24/19 17:00 12/24/19 12/24/19 17:00 17:00 WBC 14.0 H RBC 4.66 Hgb 14.0 Hct 42.0 MCV 90 MCH 30.1 MCHC 33.4 RDW 16.7 H Plt Count 172 Seg Neutrophils % 76.6 Sodium 136.7 L Potassium 4.6 Chloride 102 Carbon Dioxide 25 Anion Gap 10 BUN 20 Creatinine 1.48 H Est GFR ( Amer) 57 L Glucose 103 Calcium 9.2 Total Bilirubin 1.8 H AST 25 Alkaline Phosphatase 70 Total Protein 7.5 Albumin 4.0 Impressions: Ankle X-Ray 12/24/19 15:50 IMPRESSION: 1. Acute avulsion fracture of the medial malleolus. 2. Acute displaced and comminuted fracture of the distal fibula. Knee X-Ray 12/24/19 15:50 IMPRESSION: No acute osseous abnormality of the left knee. Chest X-Ray 12/24/19 15:51 IMPRESSION: Hyperinflated lungs which can be seen with obstructive lung disease. No acute cardiopulmonary disease. Assessment and Plan - Diagnosis (1) On anticoagulant therapy Is this a current diagnosis for this admission?: Yes (2) AICD (automatic cardioverter/defibrillator) present Is this a current diagnosis for this admission?: Yes (3) CHF (congestive heart failure) Is this a current diagnosis for this admission?: Yes (4) Coronary artery disease Is this a current diagnosis for this admission?: Yes (5) COPD (chronic obstructive pulmonary disease) Is this a current diagnosis for this admission?: Yes - Plan Summary Summary: Patient has an obvious fracture that needs surgical repair the left lower extremity however patient does have a significant core cardiac history. Patient is also on anticoagulant therapy. Need to be stopped probably 48 hours prior to surgery and is being held now. Will be seen by cardiology tomorrow morning and evaluated. Explained all this to the patient he understands that this is going to be done as best we can with the records we have on hand. Patient is in no distress now. Will be fed tonight since he is not eligible for surgery tomorrow due to his Xarelto. Dr. Rich has been consulted for cardiology will see the patient in the morning - Time Time Spent with patient: 35 or more minutes
[2019-12-24 19:15] LABS: PROTHROMBIN TIME 14.2 SEC (11.4-15.4)
[2019-12-24 19:38] LABS: CREATINE KINASE MB 1.26 ng/mL (<4.55); TROPONIN I 0.022 ng/mL
[2019-12-24] MEDS ORDERED: GLUCAGON,HUMAN RECOMB 1 MG INJ SUBCUT PRN (19:45)
[2019-12-24] MEDS ORDERED: DEXTROSE 50%-WATER 25 GM/50 ML DISP.SYRIN IV PRN ×2 (19:45)
[2019-12-24] MEDS ORDERED: DEXTROSE 40% GEL 15 GM TUBE PO PRN ×2 (19:45)
--- NOTE | 2019-12-24 20:49 | PDOC CONSULTATION ---
Consultation Consult Date: 12/24/19 Provider Consulted: HERNANDO GARDNER Consult reason:: Preoperative cardiovascular assessment History of Present Illness Admission Date/PCP: 12/24/19 18:43 MICHAEL CARBONE MD Patient complains of: Left lower extremity pain and discomfort History of Present Illness: SAUNDRA VILLEDA is a 69 year old male With the following active problems 1. Coronary artery disease-PCI remote 2. Right-sided [employer] BIVICD 2014 3. Systemic hypertension 4. Dyslipidemia 5. Nicotine dependence in remission 6. Dilated cardiomyopathy-probable mixed etiology 7. Congestive heart failure-unknown ejection fraction 8. Systemic anticoagulation 9. Atrial fibrillation 69-year-old male with the following above problems who had a mechanical fall and is fractured his left ankle. Preoperative cardiovascular assessment is requested. Patient is actually followed closely by cardiology at [facility]. He most recently had a pharmacological stress test 6 to 7 months ago which was unremarkable per patient. Report is not available. Prior to the fall patient was able to do daily activities without any effort limitation, chest pain or dyspnea. By his report and my assessment he is easily able to do more than 4 mets in terms of daily activity. He is a former smoker. No familial illnesses reported. Surgical history includes remote stent placement as well as right-sided [id number]. Apparently there were issues with venous access on the left chest wall and the device was placed on the right chest. The device was interrogated recently. Reports are not available. Past Medical History Cardiac Medical History: Reports: Atrial Fibrillation, Myocardial Infarction, Hyperlipidema Pulmonary Medical History: Reports: Chronic Obstructive Pulmonary Disease (COPD) GI Medical History: Reports: Gastroesophageal Reflux Disease Past Surgical History Past Surgical History: Reports: Orthopedic Surgery - L ARM PERMANENT PLATES, Pacemaker - w/ defib Social History Lives with: Spouse/Significant other Smoking Status: Former Smoker Electronic Cigarette use?: No - Advance Directive Resuscitation Status: Full Code Family History Family History: None, Reviewed & Not Pertinent Parental Family History Reviewed: No - No familial illnesses reported to me Children Family History Reviewed: NA Sibling(s) Family History Reviewed.: NA Medication/Allergy Home Medications: Omeprazole 20 mg PO DAILY 08/19/15 Tiotropium [place] [Spiriva Handihaler 18 mcg/dose (30 Dose)] 1 cap IH DAILY 08/19/15 Albuterol Sulfate [Proair HFA Inhalation Aerosol 8.5 gm MDI] 2 puff IH Q6HP PRN 12/24/19 Budesonide/Formoterol Fumarate [Symbicort HFA 160-4.5 mcg Inhaler 6 gm] 2 puff IH Q12 12/24/19 Gabapentin [Neurontin 100 mg Capsule] 100 mg PO Q8 12/24/19 Metoprolol Tartrate [Lopressor 50 mg Tablet] 50 mg PO QPM 12/24/19 Rivaroxaban [Xarelto] 20 mg PO QPM 12/24/19 Sacubitril/Valsartan [Entresto 24 mg/26 mg Tablet] 1 tab PO Q12 12/24/19 Spironolactone [Aldactone 25 mg Tablet] 25 mg PO QPM 12/24/19 Allergies/Adverse Reactions: carvedilol [From Coreg] Allergy (Severe, Verified 09/15/18 21:39) pravastatin [Pravastatin] Allergy (Severe, Verified 09/15/18 21:39) Review of Systems Cardiovascular: ABSENT: as per HPI, chest pain, dyspnea on exertion, edema, orthropnea, palpitations, other Respiratory: ABSENT: as per HPI, cough, dyspnea, hemoptysis, sputum, other Integumentary: PRESENT: other - He bleeds easily. Left lower extremity hurts Physical Exam Vital Signs: Temp Pulse Resp BP Pulse Ox 98.2 F 103 H 16 85/41 L 95 12/24/19 15:50 12/24/19 15:50 12/24/19 19:17 12/24/19 19:17 12/24/19 19:17 Intake & Output 12/23/19 12/24/19 12/25/19 06:59 06:59 06:59 Intake Total 500 Balance 500 Weight 97.522 kg General appearance: PRESENT: no acute distress, cooperative, obese, well- developed Head exam: PRESENT: atraumatic, normocephalic Eye exam: PRESENT: conjunctiva pink, EOMI Respiratory exam: PRESENT: clear to auscultation santosh, symmetrical, unlabored Cardiovascular exam: PRESENT: irregular rhythm, +S1, +S2, other - Right chest wall ICD implant site is well-healed without edema erythema or excoriation. Pulses: PRESENT: normal radial pulses GI/Abdominal exam: PRESENT: soft Rectal exam: PRESENT: deferred Neurological exam: PRESENT: alert, awake, oriented to person, oriented to place, oriented to time, oriented to situation Psychiatric exam: PRESENT: appropriate affect Skin exam: PRESENT: dry, intact, normal color Results Laboratory Results: 12/24/19 17:00 12/24/19 17:00 12/24/19 12/24/19 17:00 17:00 WBC 14.0 H RBC 4.66 Hgb 14.0 Hct 42.0 MCV 90 MCH 30.1 MCHC 33.4 RDW 16.7 H Plt Count 172 Seg Neutrophils % 76.6 Sodium 136.7 L Potassium 4.6 Chloride 102 Carbon Dioxide 25 Anion Gap 10 BUN 20 Creatinine 1.48 H Est GFR ( Amer) 57 L Glucose 103 Calcium 9.2 Total Bilirubin 1.8 H AST 25 Alkaline Phosphatase 70 Total Protein 7.5 Albumin 4.0 12/24/19 17:00 CK-MB (CK-2) 1.26 Troponin I 0.022 NT-Pro-B Natriuret Pep 742 H EKG Comments: Twelve-lead EKG 12/24/2019: 16: 30 Independently reviewed by me. Atrial sensed ventricular paced rhythm. Underlying rhythm is likely sinus tachycardia. PVCs are noted. Impressions: Ankle X-Ray 12/24/19 15:50 IMPRESSION: 1. Acute avulsion fracture of the medial malleolus. 2. Acute displaced and comminuted fracture of the distal fibula. Knee X-Ray 12/24/19 15:50 IMPRESSION: No acute osseous abnormality of the left knee. Chest X-Ray 12/24/19 15:51 IMPRESSION: Hyperinflated lungs which can be seen with obstructive lung disease. No acute cardiopulmonary disease. Status: Image reviewed by me - Chest x-ray shows right-sided biventricular ICD No pulmonary edema X-rays of the lower extremity show distal left fibula fractu re as well as avulsed ankle joint Assessment & Plan - Diagnosis (1) Preop cardiovascular exam Is this a current diagnosis for this admission?: Yes Plan: Patient is an acceptable risk for planned surgery under anesthesia without further re-stratification. We can try procure the results of the pharmacological stress test that was done a few months ago. Presumably he also had recent assessment of his left ventricular ejection fraction. However in either event given good functional capacity and his ability to do more than 4 mets in terms of daily activities suggest that he is an acceptable risk without further testing or re-stratification. Given history of coronary artery disease and congestive heart failure we should try to minimize myocardial oxygen consumption during the surgery and also minimize fluid and volume shifts and rapid blood pressure changes. If systemic anticoagulation with rivaroxaban has to be interrupted it can be done 2 to 3 days prior to surgery and should be resumed as soon as feasible. Other cardiac medicines and antihypertensives should be continued perio peratively. Patient is presently not on aspirin therapy or antiplatelet therapy due to stents being remote. (2) On anticoagulant therapy Is this a current diagnosis for this admission?: Yes Plan: On systemic anticoagulation for likely paroxysmal atrial fibrillation. Rivaroxaban can be interrupted 2 to 3 days prior to planned surgery but should be resumed as soon as feasible. (3) AICD (automatic cardioverter/defibrillator) present Is this a current diagnosis for this admission?: Yes Plan: ICD was recently interrogated the patient. We can procure the reports (4) Coronary artery disease Is this a current diagnosis for this admission?: Yes (5) COPD (chronic obstructive pulmonary disease) Is this a current diagnosis for this admission?: Yes Plan: This appears to be stable with no active wheezing. We will watch respiratory status.
[2019-12-24 21:19] LABS: APPEARANCE,URINE CLEAR; BILIRUBIN,URINE NEGATIVE (NEGATIVE); COLOR,URINE AMBER; GLUCOSE, URINE NEGATIVE (NEGATIVE); KETONES,URINE NEGATIVE (NEGATIVE); PROTEIN,URINE NEGATIVE (NEGATIVE); URINE SPECIFIC GRAVITY 1.021; UROBILINOGEN,URINE NEGATIVE mg/dL (<2.0)
[2019-12-24] MEDS: SACUBITRIL/VALSARTAN 24 MG/26 MG TABLET PO SCH (21:26)
[2019-12-24] MEDS: GABAPENTIN 100 MG CAPSULE PO SCH (21:30)
[2019-12-24] MEDS: METOPROLOL TARTRATE 25 MG TABLET PO SCH (21:30)
[2019-12-24] MEDS: OXYCODONE-ACETAMINOPHEN 5-325 MG TABLET PO PRN (21:49)
[2019-12-25] MEDS: GABAPENTIN 100 MG CAPSULE PO SCH ×3 (05:11→21:15)
[2019-12-25] MEDS: SACUBITRIL/VALSARTAN 24 MG/26 MG TABLET PO SCH ×2 (05:11→17:41)
[2019-12-25] MEDS: PANTOPRAZOLE SODIUM 20 MG TABLET.DR PO SCH (05:11)
[2019-12-25 05:42] LABS: ABSOLUTE BASOPHILS # (AUTO) 0.1 10^3/uL (0.0-0.2); ABSOLUTE EOSINOPHILS # (AUTO) 0.1 10^3/uL (0.0-0.6); ABSOLUTE LYMPHOCYTES (AUTO) 2.1 10^3/uL (0.5-4.7); ABSOLUTE MONOCYTES (AUTO) 1.6 10^3/uL (0.1-1.4); ABSOLUTE NEUT (AUTO) 6.9 10^3/uL (1.7-8.2); EOSINOPHILS % (AUTO) 0.9 % (0-6); HEMATOCRIT 36.7 % (37.9-51.0); HEMOGLOBIN 12.3 g/dL (13.5-17.0); LYMPHOCYTES % (AUTO) 19.4 % (13-45); MEAN CORPUSCULAR HEMOGLOBIN 29.9 pg (27.0-33.4); MEAN CORPUSCULAR HGB CONC 33.4 g/dL (32.0-36.0); MEAN CORPUSCULAR VOLUME 90 fl (80-97); MONOCYTES % (AUTO) 15.1 % (3-13); PLATELET COUNT 140 10^3/uL (150-450); RED BLOOD COUNT 4.09 10^6/uL (4.35-5.55); RED CELL DISTRIBUTION WIDTH 16.4 % (11.5-14.0); SEGMENTED NEUTROPHILS % (AUTO) 63.6 % (42-78); TOTAL CELLS COUNTED % (AUTO) 100 %; WHITE BLOOD COUNT 10.9 10^3/uL (4.0-10.5)
[2019-12-25 06:02] LABS: ANION GAP 11 (5-19); BLOOD UREA NITROGEN 22 mg/dL (7-20); CALCIUM 8.5 mg/dL (8.4-10.2); CARBON DIOXIDE 23 mmol/L (22-30); CHLORIDE 104 mmol/L (98-107); GLUCOSE 89 mg/dL (75-110); POTASSIUM 4.2 mmol/L (3.6-5.0)
--- NOTE | 2019-12-25 07:21 | EKG REPORT ---
SEVERITY:- ABNORMAL ECG - ATRIAL-SENSED VENTRICULAR-PACED RHYTHM : Confirmed by: Nnamdi Ball MD 25-Dec-2019 07:21:05
[2019-12-25] MEDS: DOCUSATE SODIUM 100 MG CAPSULE PO SCH (09:06)
[2019-12-25] MEDS: METOPROLOL TARTRATE 25 MG TABLET PO SCH ×2 (09:06→21:08)
[2019-12-25] MEDS: SPIRONOLACTONE 25 MG TABLET PO SCH ×2 (09:06→18:50)
--- NOTE | 2019-12-25 12:23 | PDOC PROGRESS REPORT ---
Subjective Progress Note for:: 12/25/19 Reason For Visit: DISPLACED FRACTURE OF THE MEDIAL MALLEOLUS LEFT Physical Exam Vital Signs: Temp Pulse Resp BP Pulse Ox 98.5 F 79 17 91/68 L 91 L 12/25/19 08:01 12/25/19 08:01 12/25/19 08:01 12/25/19 08:01 12/25/19 08:01 Intake & Output 12/24/19 12/25/19 12/26/19 06:59 06:59 06:59 Intake Total 740 Output Total 350 Balance 390 Weight 99 kg General appearance: PRESENT: no acute distress Respiratory exam: PRESENT: clear to auscultation santosh. ABSENT: rales, rhonchi, wheezes Cardiovascular exam: PRESENT: RRR. ABSENT: diastolic murmur, rubs, systolic murmur Extremities exam: PRESENT: other - Deferred to orthopedics Neurological exam: PRESENT: alert, awake, oriented to person, oriented to place, oriented to time, oriented to situation, CN II-XII grossly intact. ABSENT: motor sensory deficit Psychiatric exam: PRESENT: appropriate affect, normal mood. ABSENT: homicidal ideation, suicidal ideation Results Laboratory Results: 12/25/19 04:17 12/25/19 04:17 12/24/19 12/24/19 12/24/19 17:00 17:00 20:50 WBC 14.0 H RBC 4.66 Hgb 14.0 Hct 42.0 MCV 90 MCH 30.1 MCHC 33.4 RDW 16.7 H Plt Count 172 Seg Neutrophils % 76.6 Sodium 136.7 L Potassium 4.6 Chloride 102 Carbon Dioxide 25 Anion Gap 10 BUN 20 Creatinine 1.48 H Est GFR ( Amer) 57 L Glucose 103 Calcium 9.2 Magnesium Total Bilirubin 1.8 H AST 25 Alkaline Phosphatase 70 Total Protein 7.5 Albumin 4.0 Urine Color GENO Urine Appearance CLEAR Urine pH 5.0 Ur Specific [place] 1.021 Urine Protein NEGATIVE Urine Glucose (UA) NEGATIVE Urine Ketones NEGATIVE Urine Blood NEGATIVE Urine RBC (Auto) 1 12/25/19 12/25/19 04:17 04:17 WBC 10.9 H RBC 4.09 L Hgb 12.3 L Hct 36.7 L MCV 90 MCH 29.9 MCHC 33.4 RDW 16.4 H Plt Count 140 L Seg Neutrophils % 63.6 Sodium 137.9 Potassium 4.2 Chloride 104 Carbon Dioxide 23 Anion Gap 11 BUN 22 H Creatinine 1.31 H Est GFR ( Amer) > 60 Glucose 89 Calcium 8.5 Magnesium 1.6 Total Bilirubin AST Alkaline Phosphatase Total Protein Albumin Urine Color Urine Appearance Urine pH Ur Specific [place] Urine Protein Urine Glucose (UA) Urine Ketones Urine Blood Urine RBC (Auto) 12/24/19 17:00 CK-MB (CK-2) 1.26 Troponin I 0.022 NT-Pro-B Natriuret Pep 742 H Impressions: Ankle X-Ray 12/24/19 15:50 IMPRESSION: 1. Acute avulsion fracture of the medial malleolus. 2. Acute displaced and comminuted fracture of the distal fibula. Knee X-Ray 12/24/19 15:50 IMPRESSION: No acute osseous abnormality of the left knee. Chest X-Ray 12/24/19 15:51 IMPRESSION: Hyperinflated lungs which can be seen with obstructive lung disease. No acute cardiopulmonary disease. Assessment and Plan - Diagnosis (1) On anticoagulant therapy Is this a current diagnosis for this admission?: Yes (2) AICD (automatic cardioverter/defibrillator) present Is this a current diagnosis for this admission?: Yes (3) CHF (congestive heart failure) Is this a current diagnosis for this admission?: Yes (4) Coronary artery disease Is this a current diagnosis for this admission?: Yes (5) COPD (chronic obstructive pulmonary disease) Is this a current diagnosis for this admission?: Yes - Plan Summary Summary: Patient has an obvious fracture that needs surgical repair the left lower extremity however patient does have a significant core cardiac history. Patient is also on anticoagulant therapy. Need to be stopped probably 48 hours prior to surgery and is being held now. Will be seen by cardiology tomorrow morning and evaluated. Explained all this to the patient he understands that this is going to be done as best we can with the records we have on hand. Patient is in no distress now. Will be fed tonight since he is not eligible for surgery tomorrow due to his Xarelto. Dr. Rich has been consulted for cardiology will see the patient in the morning 12/25/2019 Aperture is 98.5 pulse is 79 and regular. No recent tachycardia Blood pressure is his normal 91/68. Patient is normally hypotensive concerning his readings Baseline oxygen saturation is about 95% on room air Patient did not take his Xarelto yesterday or today Labs appear to be stable Coags are normal Appreciate cardiology's consult. Orthopedics to decide on timing of patient's anticipated surgery - Time Time Spent with patient: 25-34 minutes
[2019-12-25] MEDS: IPRATROPIUM/ALBUTEROL 0.5-2.5 MG/3 ML AMPUL NEB PRN ×2 (12:31→18:45)
[2019-12-25] MEDS ORDERED: FENTANYL CITRATE INJ/PF 100 MCG/2 ML AMPUL ONE (15:02)
[2019-12-25] MEDS ORDERED: LIDOCAINE 2% INJ-PF (20 MG/ML) 10 ML AMPUL ONE (15:04)
[2019-12-25] MEDS ORDERED: PROPOFOL INJ 200 MG/20 ML VIAL IV ONE ×2 (15:04→17:47)
[2019-12-25] MEDS ORDERED: MIDAZOLAM 2 MG/2 ML INJ ONE (15:04)
[2019-12-25] MEDS ORDERED: EPINEPHRINE INJ/PF 1 MG/1 ML AMPULE ONE (15:05)
[2019-12-25] MEDS ORDERED: EPHEDRINE SULFATE INJ 50 MG/1 ML AMPULE ONE (15:05)
--- NOTE | 2019-12-25 15:50 | PDOC CONSULTATION ---
Consultation Consult Date: 12/25/19 Attending physician:: LUCI RICKS Provider Consulted: TEMO MCGOWAN Consult reason:: Left ankle bimalleolar fracture History of Present Illness Admission Date/PCP: 12/24/19 18:43 MICHAEL CARBONE MD Patient complains of: Left ankle pain History of Present Illness: SAUNDRA VILLEDA is a 69 year old male who sustained a low-energy fall at home resulting in an injury to his left ankle. He initially did not feel that his symptoms were severe and waited a day at home. He presented to the emergency department last evening complaining of ankle pain and the inability to walk on his ankle. He was admitted to the hospitalist service for preoperative medical optimization. Past Medical History Cardiac Medical History: Reports: Atrial Fibrillation, Myocardial Infarction, Hyperlipidema Pulmonary Medical History: Reports: Chronic Obstructive Pulmonary Disease (COPD) GI Medical History: Reports: Gastroesophageal Reflux Disease Past Surgical History Past Surgical History: Reports: Orthopedic Surgery - L ARM PERMANENT PLATES, Pacemaker - w/ defib Social History Lives with: Spouse/Significant other Smoking Status: Former Smoker Electronic Cigarette use?: No Frequency of Alcohol Use: None Hx Recreational Drug Use: No Drugs: None - Advance Directive Resuscitation Status: Full Code Family History Family History: None, Reviewed & Not Pertinent Parental Family History Reviewed: Yes Children Family History Reviewed: Yes Sibling(s) Family History Reviewed.: Yes Medication/Allergy Home Medications: Omeprazole 20 mg PO DAILY 08/19/15 Tiotropium [place] [Spiriva Handihaler 18 mcg/dose (30 Dose)] 1 cap IH DAILY 08/19/15 Albuterol Sulfate [Proair HFA Inhalation Aerosol 8.5 gm MDI] 2 puff IH Q6HP PRN 12/24/19 Budesonide/Formoterol Fumarate [Symbicort HFA 160-4.5 mcg Inhaler 6 gm] 2 puff IH Q12 12/24/19 Gabapentin [Neurontin 100 mg Capsule] 100 mg PO Q8 12/24/19 Metoprolol Tartrate [Lopressor 50 mg Tablet] 50 mg PO QPM 12/24/19 Rivaroxaban [Xarelto] 20 mg PO QPM 12/24/19 Sacubitril/Valsartan [Entresto 24 mg/26 mg Tablet] 1 tab PO Q12 12/24/19 Spironolactone [Aldactone 25 mg Tablet] 25 mg PO QPM 12/24/19 Allergies/Adverse Reactions: carvedilol [From Coreg] Allergy (Severe, Verified 09/15/18 21:39) pravastatin [Pravastatin] Allergy (Severe, Verified 09/15/18 21:39) Review of Systems Constitutional: ABSENT: chills, fever(s), headache(s), weight gain, weight loss Cardiovascular: PRESENT: as per HPI Respiratory: PRESENT: as per HPI Gastrointestinal: PRESENT: as per HPI Genitourinary: ABSENT: dysuria, hematuria Musculoskeletal: PRESENT: as per HPI, other Neurological: PRESENT: numbness, paresthesias Psychiatric: ABSENT: anxiety, depression, homidical ideation, suicidal ideation Hematologic/Lymphatic: PRESENT: as per HPI Physical Exam Vital Signs: Temp Pulse Resp BP Pulse Ox 98.1 F 80 18 100/46 L 96 12/25/19 14:59 12/25/19 14:59 12/25/19 14:59 12/25/19 14:59 12/25/19 14:59 Intake & Output 12/24/19 12/25/19 12/26/19 06:59 06:59 06:59 Intake Total 740 800 Output Total 350 Balance 390 800 Weight 99 kg General appearance: PRESENT: no acute distress, well-developed, well-nourished Head exam: PRESENT: atraumatic, normocephalic Eye exam: PRESENT: conjunctiva pink, EOMI, PERRLA. ABSENT: scleral icterus Mouth exam: PRESENT: moist, tongue midline Neck exam: ABSENT: carotid bruit, JVD, lymphadenopathy, thyromegaly Respiratory exam: PRESENT: prolonged expiratory phas Cardiovascular exam: PRESENT: irregular rhythm Pulses: PRESENT: +1 pedal pulses bilateral GI/Abdominal exam: PRESENT: normal bowel sounds, soft. ABSENT: distended, guarding, mass, organolmegaly, rebound, tenderness Rectal exam: PRESENT: deferred Musculoskeletal exam: PRESENT: other - The left ankle is splinted. The patient is able to move all of his toes. Sensation is decreased in a stocking glove distribution consistent with his prior diagnosis of neuropathy. There is good capillary refill of the toes. 1+ DP and PT pulses are present. Results Laboratory Results: 12/25/19 04:17 12/25/19 04:17 0312/24/19 12/24/19 17:00 17:00 20:50 WBC 14.0 H RBC 4.66 Hgb 14.0 Hct 42.0 MCV 90 MCH 30.1 MCHC 33.4 RDW 16.7 H Plt Count 172 Seg Neutrophils % 76.6 Sodium 136.7 L Potassium 4.6 Chloride 102 Carbon Dioxide 25 Anion Gap 10 BUN 20 Creatinine 1.48 H Est GFR ( Amer) 57 L Glucose 103 Calcium 9.2 Magnesium Total Bilirubin 1.8 H AST 25 Alkaline Phosphatase 70 Total Protein 7.5 Albumin 4.0 Urine Color [place] Urine Appearance CLEAR Urine pH 5.0 Ur Specific [place] 1.021 Urine Protein NEGATIVE Urine Glucose (UA) NEGATIVE Urine Ketones NEGATIVE Urine Blood NEGATIVE Urine RBC (Auto) 1 12/25/19 12/25/19 04:17 04:17 WBC 10.9 H RBC 4.09 L Hgb 12.3 L Hct 36.7 L MCV 90 MCH 29.9 MCHC 33.4 RDW 16.4 H Plt Count 140 L Seg Neutrophils % 63.6 Sodium 137.9 Potassium 4.2 Chloride 104 Carbon Dioxide 23 Anion Gap 11 BUN 22 H Creatinine 1.31 H Est GFR ( Amer) > 60 Glucose 89 Calcium 8.5 Magnesium 1.6 Total Bilirubin AST Alkaline Phosphatase Total Protein Albumin Urine Color Urine Appearance Urine pH Ur Specific [place] Urine Protein Urine Glucose (UA) Urine Ketones Urine Blood Urine RBC (Auto) 12/24/19 17:00 CK-MB (CK-2) 1.26 Troponin I 0.022 NT-Pro-B Natriuret Pep 742 H Impressions: Ankle X-Ray 12/24/19 15:50 IMPRESSION: 1. Acute avulsion fracture of the medial malleolus. 2. Acute displaced and comminuted fracture of the distal fibula. Knee X-Ray 12/24/19 15:50 IMPRESSION: No acute osseous abnormality of the left knee. Chest X-Ray 12/24/19 15:51 IMPRESSION: Hyperinflated lungs which can be seen with obstructive lung disease. No acute cardiopulmonary disease. Assessment & Plan - Time Time Spent: 30 to 50 Minutes Anticipated discharge: SNF Within: within 48 hours - Plan Summary Plan Summary: The patient has sustained a bimalleolar fracture of the left ankle with a comminuted lateral malleolus and a small avulsion fracture of the anterior colliculus of the medial malleolus. I have recommended open reduction with internal fixation of the lateral malleolus. I have discussed with the family that we will assess the stability of the ankle following repair of the lateral malleolus to ascertain whether attempted operative fixation of the medial mall eolus is necessary. Risks, benefits, and alternatives were discussed with the patient and his . An opportunity for questions was provided. All questions were answered to their satisfaction. In particular we discussed the risk of with anesthesia, the risk of infection, the risk of bleeding, the risk of nonunion and malunion, and the possible need for additional surgical procedures. The patient and his expressed understanding and wished to proceed with surgery.
[2019-12-25] MEDS ORDERED: DIPHENHYDRAMINE HCL 50 MG/ML VIAL IV PRN (16:09)
[2019-12-25] MEDS ORDERED: OXYCODONE-ACETAMINOPHEN 5-325 MG TABLET PO PRN ×2 (16:09)
[2019-12-25] MEDS ORDERED: CEFAZOLIN INJ 1 GM VIAL ONE (16:09)
[2019-12-25] MEDS ORDERED: FENTANYL CITRATE INJ/PF 100 MCG/2 ML AMPUL IV PRN ×3 (16:09)
[2019-12-25] MEDS ORDERED: PROMETHAZINE HCL INJ 25 MG/1 ML VIAL IV PRN ×2 (16:09)
[2019-12-25] MEDS ORDERED: ONDANSETRON HCL INJ/PF 4 MG/2 ML SDV IV PRN (16:09)
[2019-12-25] MEDS ORDERED: MEPERIDINE HCL/PF INJ 25 MG/1 ML DISP.SYRIN IV PRN (16:09)
[2019-12-25] MEDS: BUPIVACAINE HCL 0.5 % INJ/PF 30 ML SDV ONE ×2 (16:26→17:26)
--- NOTE | 2019-12-25 16:55 | PDOC PROGRESS REPORT ---
Subjective Progress Note for:: 12/25/19 Subjective:: Patient is presently in OR. Reason For Visit: DISPLACED FRACTURE OF THE MEDIAL MALLEOLUS LEFT Physical Exam Vital Signs: Temp Pulse Resp BP Pulse Ox 98.1 F 80 18 100/46 L 96 12/25/19 14:59 12/25/19 14:59 12/25/19 14:59 12/25/19 14:59 12/25/19 14:59 Intake & Output 12/24/19 12/25/19 12/26/19 06:59 06:59 06:59 Intake Total 740 800 Output Total 350 Balance 390 800 Weight 99 kg Additional comments: Not examined. Patient is in surgery Results Laboratory Results: 12/25/19 04:17 12/25/19 04:17 12/24/19 12/24/19 12/24/19 17:00 17:00 20:50 WBC 14.0 H RBC 4.66 Hgb 14.0 Hct 42.0 MCV 90 MCH 30.1 MCHC 33.4 RDW 16.7 H Plt Count 172 Seg Neutrophils % 76.6 Sodium 136.7 L Potassium 4.6 Chloride 102 Carbon Dioxide 25 Anion Gap 10 BUN 20 Creatinine 1.48 H Est GFR ( Amer) 57 L Glucose 103 Calcium 9.2 Magnesium Total Bilirubin 1.8 H AST 25 Alkaline Phosphatase 70 Total Protein 7.5 Albumin 4.0 Urine Color [place]ENO Urine Appearance CLEAR Urine pH 5.0 Ur Specific [place] 1.021 Urine Protein NEGATIVE Urine Glucose (UA) NEGATIVE Urine Ketones NEGATIVE Urine Blood NEGATIVE Urine RBC (Auto) 1 12/25/19 12/25/19 04:17 04:17 WBC 10.9 H RBC 4.09 L Hgb 12.3 L Hct 36.7 L MCV 90 MCH 29.9 MCHC 33.4 RDW 16.4 H Plt Count 140 L Seg Neutrophils % 63.6 Sodium 137.9 Potassium 4.2 Chloride 104 Carbon Dioxide 23 Anion Gap 11 BUN 22 H Creatinine 1.31 H Est GFR ( Amer) > 60 Glucose 89 Calcium 8.5 Magnesium 1.6 Total Bilirubin AST Alkaline Phosphatase Total Protein Albumin Urine Color Urine Appearance Urine pH Ur Specific [place] Urine Protein Urine Glucose (UA) Urine Ketones Urine Blood Urine RBC (Auto) 12/24/19 17:00 CK-MB (CK-2) 1.26 Troponin I 0.022 NT-Pro-B Natriuret Pep 742 H Impressions: Ankle X-Ray 12/24/19 15:50 IMPRESSION: 1. Acute avulsion fracture of the medial malleolus. 2. Acute displaced and comminuted fracture of the distal fibula. Knee X-Ray 12/24/19 15:50 IMPRESSION: No acute osseous abnormality of the left knee. Chest X-Ray 12/24/19 15:51 IMPRESSION: Hyperinflated lungs which can be seen with obstructive lung disease. No acute cardiopulmonary disease. Assessment & Plan - Diagnosis (1) Preop cardiovascular exam Is this a current diagnosis for this admission?: Yes Plan: In Surgery (2) On anticoagulant therapy Is this a current diagnosis for this admission?: Yes Plan: If stopped, resume as soon as feasible (3) AICD (automatic cardioverter/defibrillator) present Is this a current diagnosis for this admission?: Yes Plan: BIV ICD (4) Coronary artery disease Is this a current diagnosis for this admission?: Yes Plan: No ischemic symptoms Continue GDMT (5) COPD (chronic obstructive pulmonary disease) Is this a current diagnosis for this admission?: Yes
--- NOTE | 2019-12-25 17:48 | RADIOLOGY REPORT (SQ) ---
EXAM DESCRIPTION: ANKLE LEFT COMPLETE; NO CHG FLUORO COMPLETED DATE/TIME: 12/25/2019 5:29 pm REASON FOR STUDY: ORIF L ANKLE COMPARISON: 12/24/2019. FLUOROSCOPY TIME: 0.2 minutes. 3 images saved to PACS. TECHNIQUE: Intra-operative images acquired during surgical procedure to evaluate progress. NUMBER OF IMAGES: 3 images. LIMITATIONS: None. FINDINGS: Images of the ankle acquired during the procedure. IMPRESSION: IMAGE(S) OBTAINED DURING PROCEDURE. COMMENT: Quality ID 145: Final reports for procedures using fluoroscopy that document radiation exp osure indices, or exposure time and number of fluorographic images (if radiation exposure indices are not available) Please consult full operative report of the attending physician for description of the procedure. TECHNICAL DOCUMENTATION: JOB ID: [id number] 2010 [employer]- All Rights Reserved Reading location - IP/workstation name: [email or web address]
--- NOTE | 2019-12-25 17:48 | RADIOLOGY REPORT (SQ) ---
EXAM DESCRIPTION: ANKLE LEFT COMPLETE; NO CHG FLUORO COMPLETED DATE/TIME: 12/25/2019 5:29 pm REASON FOR STUDY: ORIF L ANKLE COMPARISON: 12/24/2019. FLUOROSCOPY TIME: 0.2 minutes. 3 images saved to PACS. TECHNIQUE: Intra-operative images acquired during surgical procedure to evaluate progress. NUMBER OF IMAGES: 3 images. LIMITATIONS: None. FINDINGS: Images of the ankle acquired during the procedure. IMPRESSION: IMAGE(S) OBTAINED DURING PROCEDURE. COMMENT: Quality ID [id number]: Final reports for procedures using fluoroscopy that document radiation exp osure indices, or exposure time and number of fluorographic images (if radiation exposure indices are not available) Please consult full operative report of the attending physician for description of the procedure. TECHNICAL DOCUMENTATION: JOB ID: [id number] 2010 [employer]- All Rights Reserved Reading location - IP/workstation name: [email or web address]
--- NOTE | 2019-12-25 17:53 | Operative Report ---
Operative Report DATE OF SURGERY: 12/25/19 PREOPERATIVE DIAGNOSIS: Left ankle displaced bimalleolar fracture POSTOPERATIVE DIAGNOSIS: 1. Left ankle displaced bimalleolar fracture. 2. Left ankle syndesmotic disruption OPERATION: 1. Open reduction internal fixation left ankle bimalleolar fracture. 2. Left ankle open treatment syndesmotic disruption SURGEON: TEMO MCGOWAN ANESTHESIA: Spinal COMPLICATIONS: None ESTIMATED BLOOD LOSS: Minimal INTRAOPERATIVE FINDINGS: Disruption of the ankle syndesmosis PROCEDURE: Indications for procedure: The patient is a 69-year-old male with neuropathy who sustained a fall at home resulting in a displaced bimalleolar fracture of the left ankle. Description of procedure: Following the induction of a spinal anesthetic and administration of 2 g of Ancef, the patient was positioned supine on the operating room table. All bony prominences were padded. The left lower e xtremity was sterilely prepped with ChloraPrep and draped in standard fashion. We first turned our attention to the comminuted fracture of the lateral malleolus. A sharp incision through skin was made on the lateral aspect of the leg. Blunt dissection under 3.5 loupe magnification was performed through the subcutaneous tissue with care taken to protect superficial branching nerves. The fracture lines were identified. There was a comminuted fracture of the lateral malleolus with multiple small fragments in the region of the syndesmosis. The fracture fragments were teased back into position. It was that this point that it was noted that the syndesmosis had been disrupted both through bone and soft tissue. The fracture fragments were anatomically teased backed into position and clamped into place. The fragments were too small to individually fixate with lag screw fixation. While the fragments were held in this position a locking plate from the John ankle system was placed laterally with 3 locking screws in the distal fragment and several cortical screws in the proximal fibula. Once the fibula was anatomically aligned, a syndesmotic screw was placed through the plate and across the tibia with the ankle dorsiflexed. Anatomic reduction of the lateral malleolus and syndesmosis was obtained. Image intensification was then brought in and the ankle mortise was congruent on 3 radiographic views. The medial malleolar fragment was a small avulsion of the anterior colliculus. The ankle was stable following fixation of the other injuries, and it was decided not to attempt fixation of this small fragment as the patient already had significant swelling and blister formation from the injury. The wound was then copiously irrigated. The subcutaneous tissue was closed with 2-0 Vicryl. The skin was reapproximated [id number] with 3-0 Monocryl suture. 0.5% Marcaine was injected for postoperative analgesia. A bulky sterile dressing and posterior splint was applied. The patient tolerated the procedure well without complication and was brought to recovery room in stable condition.
[2019-12-25] MEDS ORDERED: FUROSEMIDE INJ/PF 20 MG/2 ML SDV IV ONE (20:00)
[2019-12-25] MEDS ORDERED: METOPROLOL TARTRATE 25 MG TABLET PO ONE (20:30)
[2019-12-25] MEDS: OXYCODONE-ACETAMINOPHEN 5-325 MG TABLET PO PRN (21:35)
[2019-12-26] MEDS: ACETAMINOPHEN 325 MG TABLET PO PRN (00:06)
[2019-12-26] MEDS: SACUBITRIL/VALSARTAN 24 MG/26 MG TABLET PO SCH ×2 (05:22→17:37)
[2019-12-26] MEDS: OXYCODONE-ACETAMINOPHEN 5-325 MG TABLET PO PRN ×3 (05:43→18:19)
[2019-12-26] MEDS: GABAPENTIN 100 MG CAPSULE PO SCH ×3 (05:43→22:01)
[2019-12-26] MEDS: PANTOPRAZOLE SODIUM 20 MG TABLET.DR PO SCH (05:47)
[2019-12-26] MEDS: DOCUSATE SODIUM 100 MG CAPSULE PO SCH (10:31)
[2019-12-26] MEDS: SPIRONOLACTONE 25 MG TABLET PO SCH (10:33)
[2019-12-26] MEDS: METOPROLOL TARTRATE 25 MG TABLET PO SCH ×2 (10:33→22:00)
--- NOTE | 2019-12-26 10:43 | PDOC PROGRESS REPORT ---
Subjective Progress Note for:: 12/26/19 Reason For Visit: DISPLACED FRACTURE OF THE MEDIAL MALLEOLUS LEFT 12/26/2019 Patient was admitted to the hospital for fracture of the left lower extremity, and other medical comorbidities Physical Exam Vital Signs: Temp Pulse Resp BP Pulse Ox 97.7 F 84 12 100/50 L 91 L 12/26/19 07:42 12/26/19 10:32 12/26/19 07:42 12/26/19 10:32 12/26/19 07:42 Intake & Output 12/25/19 12/26/19 12/27/19 06:59 06:59 06:59 Intake Total 740 2780 Output Total 350 770 Balance 390 2009 Weight 99 kg 98.5 kg General appearance: PRESENT: mild distress, other - Planing of mild leg pain as one would expect postop Respiratory exam: PRESENT: clear to auscultation santosh. ABSENT: rales, rhonchi, wheezes Cardiovascular exam: PRESENT: RRR. ABSENT: diastolic murmur, rubs, systolic murmur Extremities exam: PRESENT: other - Deferred to orthopedics Neurological exam: PRESENT: alert, awake, oriented to person, oriented to place, oriented to time, oriented to situation, CN II-XII grossly intact. ABSENT: motor sensory deficit Psychiatric exam: PRESENT: appropriate affect, normal mood. ABSENT: homicidal ideation, suicidal ideation Results Laboratory Results: 12/25/19 04:17 12/25/19 04:17 12/24/19 17:00 CK-MB (CK-2) 1.26 Troponin I 0.022 NT-Pro-B Natriuret Pep 742 H Impressions: Knee X-Ray 12/24/19 15:50 IMPRESSION: No acute osseous abnormality of the left knee. Chest X-Ray 12/24/19 15:51 IMPRESSION: Hyperinflated lungs which can be seen with obstructive lung disease. No acute cardiopulmonary disease. Ankle X-Ray 12/25/19 00:00 IMPRESSION: IMAGE(S) OBTAINED DURING PROCEDURE. Fluoroscopy 12/25/19 00:00 IMPRESSION: IMAGE(S) OBTAINED DURING PROCEDURE. Assessment and Plan - Diagnosis (1) On anticoagulant therapy Is this a current diagnosis for this admission?: Yes (2) AICD (automatic cardioverter/defibrillator) present Is this a current diagnosis for this admission?: Yes (3) CHF (congestive heart failure) Is this a current diagnosis for this admission?: Yes (4) Coronary artery disease Is this a current diagnosis for this admission?: Yes (5) COPD (chronic obstructive pulmonary disease) Is this a current diagnosis for this admission?: Yes - Plan Summary Summary: Patient has an obvious fracture that needs surgical repair the left lower extremity however patient does have a significant core cardiac history. Patient is also on anticoagulant therapy. Need to be stopped probably 48 hours prior to surgery and is being held now. Will be seen by cardiology tomorrow morning and evaluated. Explained all this to the patient he understands that this is going to be done as best we can with the records we have on hand. Patient is in no distress now. Will be fed tonight since he is not eligible for surgery tomorrow due to his Xarelto. Dr. Rich has been consulted for cardiology will see the patient in the morning 12/25/2019 Aperture is 98.5 pulse is 79 and regular. No recent tachycardia Blood pressure is his normal 91/68. Patient is normally hypotensive concerning his readings Baseline oxygen saturation is about 95% on room air Patient did not take his Xarelto yesterday or today Labs appear to be stable Coags are normal Appreciate cardiology's consult. Orthopedics to decide on timing of patient's anticipated surgery 12/26/2019 Patient's vital signs appear to be back to baseline today. Temperature 98.4 pulse 81 blood pressure 100/60 which is his normal. O2 sat between 90 to 94% on room air Labs from today are pending Patient is asking to go to rehab from discharge. I will put a consult in to discharge planning. Patient appears to be medically stable. Will resume Xarelto when orthopedics approves. - Time Time Spent with patient: 25-34 minutes
[2019-12-26 11:44] LABS: ABSOLUTE BASOPHILS # (AUTO) 0.1 10^3/uL (0.0-0.2); ABSOLUTE EOSINOPHILS # (AUTO) 0.1 10^3/uL (0.0-0.6); ABSOLUTE LYMPHOCYTES (AUTO) 1.3 10^3/uL (0.5-4.7); ABSOLUTE MONOCYTES (AUTO) 1.2 10^3/uL (0.1-1.4); ABSOLUTE NEUT (AUTO) 8.8 10^3/uL (1.7-8.2); BASOPHILS % (AUTO) 0.4 % (0-2); EOSINOPHILS % (AUTO) 0.8 % (0-6); HEMATOCRIT 35.7 % (37.9-51.0); HEMOGLOBIN 11.8 g/dL (13.5-17.0); LYMPHOCYTES % (AUTO) 11.3 % (13-45); MEAN CORPUSCULAR HEMOGLOBIN 29.8 pg (27.0-33.4); MEAN CORPUSCULAR HGB CONC 33.1 g/dL (32.0-36.0); MEAN CORPUSCULAR VOLUME 90 fl (80-97); MONOCYTES % (AUTO) 10.2 % (3-13); PLATELET COUNT 137 10^3/uL (150-450); RED BLOOD COUNT 3.96 10^6/uL (4.35-5.55); RED CELL DISTRIBUTION WIDTH 16.9 % (11.5-14.0); SEGMENTED NEUTROPHILS % (AUTO) 77.3 % (42-78); TOTAL CELLS COUNTED % (AUTO) 100 %; WHITE BLOOD COUNT 11.4 10^3/uL (4.0-10.5)
[2019-12-26 12:09] LABS: ANION GAP 12 (5-19); BLOOD UREA NITROGEN 23 mg/dL (7-20); CALCIUM 8.2 mg/dL (8.4-10.2); CARBON DIOXIDE 25 mmol/L (22-30); CHLORIDE 100 mmol/L (98-107); GLUCOSE 101 mg/dL (75-110); POTASSIUM 4.2 mmol/L (3.6-5.0)
[2019-12-26] MEDS: CEFAZOLIN SODIUM 2 GM in DEXTROSE 5%-WATER 100 ML IV SCH ×2 (15:00→22:01)
[2019-12-26] MEDS: RIVAROXABAN 10 MG TABLET PO SCH (17:37)
[2019-12-27] MEDS: OXYCODONE-ACETAMINOPHEN 5-325 MG TABLET PO PRN ×3 (00:59→17:08)
[2019-12-27] MEDS: CEFAZOLIN SODIUM 2 GM in DEXTROSE 5%-WATER 100 ML IV SCH (06:18)
[2019-12-27] MEDS: GABAPENTIN 100 MG CAPSULE PO SCH ×3 (06:18→21:59)
[2019-12-27] MEDS: PANTOPRAZOLE SODIUM 20 MG TABLET.DR PO SCH (06:19)
[2019-12-27] MEDS: SACUBITRIL/VALSARTAN 24 MG/26 MG TABLET PO SCH ×2 (06:19→18:21)
[2019-12-27] MEDS: METOPROLOL TARTRATE 25 MG TABLET PO SCH ×2 (09:56→21:59)
[2019-12-27] MEDS: SPIRONOLACTONE 25 MG TABLET PO SCH (09:56)
[2019-12-27] MEDS: DOCUSATE SODIUM 100 MG CAPSULE PO SCH (09:56)
--- NOTE | 2019-12-27 12:10 | PDOC PROGRESS REPORT ---
Subjective Progress Note for:: 12/27/19 Subjective:: No complaints. Requesting discharge to SNF. Reason For Visit: DISPLACED FRACTURE OF THE MEDIAL MALLEOLUS LEFT POD # 2 ORIF bimalleolar ankle fracture open treatment syndesmotic disruption Physical Exam Vital Signs: Temp Pulse Resp BP Pulse Ox 99.4 F 90 19 83/67 L 91 L 12/27/19 08:00 12/27/19 08:00 12/27/19 08:00 12/27/19 08:00 12/27/19 08:00 Intake & Output 12/26/19 12/27/19 12/28/19 06:59 06:59 07:59 Intake Total 2780 1170 Output Total 770 480 Balance 2010 690 Weight 98.5 kg 99.5 kg Musculoskeletal exam: PRESENT: other - The left leg is splinted. Patient is able to move toes. Sensory examination at baseline. Results Laboratory Results: 12/26/19 11:23 12/26/19 11:23 12/26/19 11:23 Sodium 136.7 L Potassium 4.2 Chloride 100 Carbon Dioxide 25 Anion Gap 12 BUN 23 H Creatinine 1.22 Est GFR ( Amer) > 60 Glucose 101 Calcium 8.2 L 12/24/19 20:50 Clean Catch Midstream Urine Culture - Final Urogenital Aileen 12/24/19 17:00 CK-MB (CK-2) 1.26 Troponin I 0.022 NT-Pro-B Natriuret Pep 742 H Impressions: Knee X-Ray 12/24/19 15:50 IMPRESSION: No acute osseous abnormality of the left knee. Chest X-Ray 12/24/19 15:51 IMPRESSION: Hyperinflated lungs which can be seen with obstructive lung disease. No acute cardiopulmonary disease. Ankle X-Ray 12/25/19 00:00 IMPRESSION: IMAGE(S) OBTAINED DURING PROCEDURE. Fluoroscopy 12/25/19 00:00 IMPRESSION: IMAGE(S) OBTAINED DURING PROCEDURE. Assessment & Plan - Diagnosis (2) Ankle syndesmosis disruption Qualifiers: Encounter type: initial encounter Laterality: left Qualified Code(s): S93.432A - Sprain of tibiofibular ligament of left ankle, initial encounter Is this a current diagnosis for this admission?: Yes - Plan Summary Plan Summary: Patient is stable for discharge to SNF when bed available. NWB LLE with assist device. Marta has been re instituted since 12/26/2019.
--- NOTE | 2019-12-27 13:08 | PDOC PROGRESS REPORT ---
Subjective Progress Note for:: 12/27/19 Reason For Visit: DISPLACED FRACTURE OF THE MEDIAL MALLEOLUS LEFT 12/27/2019 Fracture of the left lower extremity, complicated, coronary artery disease, COPD, AICD, anticoagulant therapy, Physical Exam Vital Signs: Temp Pulse Resp BP Pulse Ox 98.3 F 85 18 90/46 L 97 12/27/19 12:00 12/27/19 12:36 12/27/19 12:36 12/27/19 12:00 12/27/19 12:36 Intake & Output 12/26/19 12/27/19 12/28/19 06:59 06:59 07:59 Intake Total 2780 1170 Output Total 770 480 Balance 2009 690 Weight 98.5 kg 99.5 kg General appearance: PRESENT: no acute distress, other - Patient voices no complaints Respiratory exam: PRESENT: clear to auscultation santosh. ABSENT: rales, rhonchi, wheezes Cardiovascular exam: PRESENT: RRR, other - Paced rhythm. ABSENT: diastolic murmur, rubs, systolic murmur Extremities exam: PRESENT: other - Deferred Neurological exam: PRESENT: alert, awake, oriented to person, oriented to place, oriented to time, oriented to situation, CN II-XII grossly intact. ABSENT: motor sensory deficit Psychiatric exam: PRESENT: appropriate affect, normal mood. ABSENT: homicidal ideation, suicidal ideation Results Laboratory Results: 12/26/19 11:23 12/26/19 11:23 12/24/19 20:50 Clean Catch Midstream Urine Culture - Final Urogenital Aileen 12/24/19 17:00 CK-MB (CK-2) 1.26 Troponin I 0.022 NT-Pro-B Natriuret Pep 742 H Impressions: Knee X-Ray 12/24/19 15:50 IMPRESSION: No acute osseous abnormality of the left knee. Chest X-Ray 12/24/19 15:51 IMPRESSION: Hyperinflated lungs which can be seen with obstructive lung disease. No acute cardiopulmonary disease. Ankle X-Ray 12/25/19 00:00 IMPRESSION: IMAGE(S) OBTAINED DURING PROCEDURE. Fluoroscopy 12/25/19 00:00 IMPRESSION: IMAGE(S) OBTAINED DURING PROCEDURE. Assessment and Plan - Diagnosis (1) On anticoagulant therapy Is this a current diagnosis for this admission?: Yes (2) AICD (automatic cardioverter/defibrillator) present Is this a current diagnosis for this admission?: Yes (3) CHF (congestive heart failure) Is this a current diagnosis for this admission?: Yes (4) Coronary artery disease Is this a current diagnosis for this admission?: Yes (5) COPD (chronic obstructive pulmonary disease) Is this a current diagnosis for this admission?: Yes - Plan Summary Summary: Patient has an obvious fracture that needs surgical repair the left lower extremity however patient does have a significant core cardiac history. Patient is also on anticoagulant therapy. Need to be stopped probably 48 hours prior to surgery and is being held now. Will be seen by cardiology tomorrow morning and evaluated. Explained all this to the patient he understands that this is going to be done as best we can with the records we have on hand. Patient is in no distress now. Will be fed tonight since he is not eligible for surgery tomorrow due to his Xarelto. Dr. Rich has been consulted for cardiology will see the patient in the morning 12/25/2019 Aperture is 98.5 pulse is 79 and regular. No recent tachycardia Blood pressure is his normal 91/68. Patient is normally hypotensive concerning his readings Baseline oxygen saturation is about 95% on room air Patient did not take his Xarelto yesterday or today Labs appear to be stable Coags are normal Appreciate cardiology's consult. Orthopedics to decide on timing of patient's anticipated surgery 12/26/2019 Patient's vital signs appear to be back to baseline today. Temperature 98.4 pulse 81 blood pressure 100/60 which is his normal. O2 sat between 90 to 94% on room air Labs from today are pending Patient is asking to go to rehab from discharge. I will put a consult in to discharge planning. Patient appears to be medically stable. Will resume Xarelto when orthopedics approves. 12/27/2019 Vital signs are extremely stable Patient is either on room air or 2 L nasal cannula PRN with saturations up into the upper 90s Blood pressures remained stable for this patient, with systolics in the 90s or low 100s Labs appear stable and we will not do them on a daily basis but about every third day. Patient is waiting on rehab bed. Patient is medically stable to be discharged to rehab whenever bed is available. Per orthopedics patient is to be nonweightbearing on the left lower extremity with assist device Xarelto was reinstituted last night at 1800 hrs. - Time Time Spent with patient: 15-24 minutes
--- NOTE | 2019-12-27 13:24 | PDOC PROGRESS REPORT ---
Subjective Progress Note for:: 12/27/19 Subjective:: Patient status post orthopedic surgery for left ankle fracture, dislocation. Doing well. Had mild dyspnea earlier. Now it has resolved. No report of chest pain. Spouse at bedside.. Reason For Visit: DISPLACED FRACTURE OF THE MEDIAL MALLEOLUS LEFT Physical Exam Vital Signs: Temp Pulse Resp BP Pulse Ox 98.3 F 85 18 90/46 L 97 12/27/19 12:00 12/27/19 12:36 12/27/19 12:36 12/27/19 12:00 12/27/19 12:36 Intake & Output 12/26/19 12/27/19 12/28/19 06:59 06:59 07:59 Intake Total 2780 1170 Output Total 770 480 Balance 2010 690 Weight 98.5 kg 99.5 kg General appearance: PRESENT: no acute distress, cooperative, obese, well- developed Head exam: PRESENT: atraumatic, normocephalic Eye exam: PRESENT: conjunctiva pink, EOMI Mouth exam: PRESENT: moist Respiratory exam: PRESENT: decreased breath sounds, symmetrical, unlabored, wheezes Cardiovascular exam: PRESENT: RRR, +S1, +S2, other - ICD implant site right chest wall without edema erythema or excoriation. GI/Abdominal exam: PRESENT: soft Rectal exam: PRESENT: deferred Neurological exam: PRESENT: alert, awake, oriented to person, oriented to place, oriented to time, oriented to situation Psychiatric exam: PRESENT: appropriate affect Skin exam: PRESENT: dry, intact, normal color Results Laboratory Results: 12/26/19 11:23 12/26/19 11:23 12/24/19 20:50 Clean Catch Midstream Urine Culture - Final Urogenital Aileen 12/24/19 17:00 CK-MB (CK-2) 1.26 Troponin I 0.022 NT-Pro-B Natriuret Pep 742 H Impressions: Knee X-Ray 12/24/19 15:50 IMPRESSION: No acute osseous abnormality of the left knee. Chest X-Ray 12/24/19 15:51 IMPRESSION: Hyperinflated lungs which can be seen with obstructive lung disease. No acute cardiopulmonary disease. Ankle X-Ray 12/25/19 00:00 IMPRESSION: IMAGE(S) OBTAINED DURING PROCEDURE. Fluoroscopy 12/25/19 00:00 IMPRESSION: IMAGE(S) OBTAINED DURING PROCEDURE. Assessment & Plan - Diagnosis (1) Preop cardiovascular exam Is this a current diagnosis for this admission?: Yes Plan: Patient tolerated surgery well. No chest pain. No heart failure symptoms. (2) On anticoagulant therapy Is this a current diagnosis for this admission?: Yes Plan: Systemic anticoagulation with rivaroxaban has been reinstituted. (3) AICD (automatic cardioverter/defibrillator) present Is this a current diagnosis for this admission?: Yes Plan: BIV [id number] system. (4) Coronary artery disease Is this a current diagnosis for this admission?: Yes Plan: No ischemic symptoms Continue GDMT (5) COPD (chronic obstructive pulmonary disease) Is this a current diagnosis for this admission?: Yes Plan: Stable. Occasional wheezing. But no respiratory distress.
[2019-12-27] MEDS: RIVAROXABAN 10 MG TABLET PO SCH (18:21)
[2019-12-28] MEDS: OXYCODONE-ACETAMINOPHEN 5-325 MG TABLET PO PRN ×3 (00:10→17:13)
[2019-12-28] MEDS: SACUBITRIL/VALSARTAN 24 MG/26 MG TABLET PO SCH ×2 (05:57→17:13)
[2019-12-28] MEDS: GABAPENTIN 100 MG CAPSULE PO SCH ×3 (05:57→22:12)
[2019-12-28] MEDS: PANTOPRAZOLE SODIUM 20 MG TABLET.DR PO SCH (05:57)
[2019-12-28] MEDS: DOCUSATE SODIUM 100 MG CAPSULE PO SCH (10:14)
[2019-12-28] MEDS: METOPROLOL TARTRATE 25 MG TABLET PO SCH ×2 (10:15→22:12)
[2019-12-28] MEDS: SPIRONOLACTONE 25 MG TABLET PO SCH (10:16)
[2019-12-28] MEDS: IPRATROPIUM/ALBUTEROL 0.5-2.5 MG/3 ML AMPUL NEB PRN (11:55)
--- NOTE | 2019-12-28 13:07 | PDOC PROGRESS REPORT ---
Subjective Progress Note for:: 12/28/19 Subjective:: Patient status post orthopedic surgery for left ankle fracture, dislocation. Doing well. Resting comfortably. No distress. No chest pain or dyspnea. Awaiting discharge planning Reason For Visit: DISPLACED FRACTURE OF THE MEDIAL MALLEOLUS LEFT Physical Exam Vital Signs: Temp Pulse Resp BP Pulse Ox 98.7 F 77 18 108/54 L 95 12/28/19 08:00 12/28/19 11:55 12/28/19 11:55 12/28/19 08:00 12/28/19 11:55 Intake & Output 12/27/19 12/28/19 12/29/19 05:59 06:59 06:59 Intake Total Output Total Balance Weight General appearance: PRESENT: no acute distress, cooperative, obese, well- developed Head exam: PRESENT: atraumatic, normocephalic Eye exam: PRESENT: EOMI Mouth exam: PRESENT: moist Respiratory exam: PRESENT: clear to auscultation snatosh, symmetrical, unlabored Cardiovascular exam: PRESENT: RRR, +S1, +S2, other - Right-sided ICD implant site well-healed. Pulses: PRESENT: normal radial pulses GI/Abdominal exam: PRESENT: soft Rectal exam: PRESENT: deferred Musculoskeletal exam: PRESENT: ambulatory Neurological exam: PRESENT: alert, awake, oriented to person, oriented to place, oriented to time, oriented to situation Psychiatric exam: PRESENT: appropriate affect Skin exam: PRESENT: dry, intact, normal color Results Laboratory Results: 12/26/19 11:23 12/26/19 11:23 12/24/19 17:00 CK-MB (CK-2) 1.26 Troponin I 0.022 NT-Pro-B Natriuret Pep 742 H EKG Comments: Telemetry shows by ventricular paced rhythm Impressions: Knee X-Ray 12/24/19 15:50 IMPRESSION: No acute osseous abnormality of the left knee. Chest X-Ray 12/24/19 15:51 IMPRESSION: Hyperinflated lungs which can be seen with obstructive lung disease. No acute cardiopulmonary disease. Ankle X-Ray 12/25/19 00:00 IMPRESSION: IMAGE(S) OBTAINED DURING PROCEDURE. Fluoroscopy 12/25/19 00:00 IMPRESSION: IMAGE(S) OBTAINED DURING PROCEDURE. Assessment & Plan - Diagnosis (1) Preop cardiovascular exam Is this a current diagnosis for this admission?: Yes Plan: Patient tolerated surgery well. No chest pain. No heart failure symptoms. (2) On anticoagulant therapy Is this a current diagnosis for this admission?: Yes Plan: Systemic anticoagulation with rivaroxaban has been reinstituted. (3) AICD (automatic cardioverter/defibrillator) present Is this a current diagnosis for this admission?: Yes Plan: BIV [id number] system. (4) Coronary artery disease Is this a current diagnosis for this admission?: Yes Plan: No ischemic symptoms Continue GDMT (5) COPD (chronic obstructive pulmonary disease) Is this a current diagnosis for this admission?: Yes Plan: Stable. Occasional wheezing. But no respiratory distress.
[2019-12-28] MEDS: ACETAMINOPHEN 325 MG TABLET PO PRN (13:44)
--- NOTE | 2019-12-28 16:18 | PDOC PROGRESS REPORT ---
Subjective Progress Note for:: 12/28/19 Reason For Visit: DISPLACED FRACTURE OF THE MEDIAL MALLEOLUS LEFT Patient was admitted for fracture of the left lower extremity with multiple comorbidities Physical Exam Vital Signs: Temp Pulse Resp BP Pulse Ox 98.7 F 77 18 108/54 L 95 12/28/19 08:00 12/28/19 11:55 12/28/19 11:55 12/28/19 08:00 12/28/19 11:55 Intake & Output 12/27/19 12/28/19 12/29/19 05:59 06:59 06:59 Intake Total Output Total Balance Weight General appearance: PRESENT: no acute distress Respiratory exam: PRESENT: clear to auscultation santosh. ABSENT: rales, rhonchi, wheezes Cardiovascular exam: PRESENT: RRR. ABSENT: diastolic murmur, rubs, systolic murmur Extremities exam: PRESENT: other - Deferred patient has been released by orthopedics Neurological exam: PRESENT: alert, awake, oriented to person, oriented to place, oriented to time, oriented to situation, CN II-XII grossly intact. ABSENT: motor sensory deficit Psychiatric exam: PRESENT: appropriate affect, normal mood. ABSENT: homicidal ideation, suicidal ideation Results Laboratory Results: 12/26/19 11:23 12/26/19 11:23 12/24/19 17:00 CK-MB (CK-2) 1.26 Troponin I 0.022 NT-Pro-B Natriuret Pep 742 H Impressions: Knee X-Ray 12/24/19 15:50 IMPRESSION: No acute osseous abnormality of the left knee. Chest X-Ray 12/24/19 15:51 IMPRESSION: Hyperinflated lungs which can be seen with obstructive lung disease. No acute cardiopulmonary disease. Ankle X-Ray 12/25/19 00:00 IMPRESSION: IMAGE(S) OBTAINED DURING PROCEDURE. Fluoroscopy 12/25/19 00:00 IMPRESSION: IMAGE(S) OBTAINED DURING PROCEDURE. Assessment and Plan - Diagnosis (1) On anticoagulant therapy Is this a current diagnosis for this admission?: Yes (2) AICD (automatic cardioverter/defibrillator) present Is this a current diagnosis for this admission?: Yes (3) CHF (congestive heart failure) Is this a current diagnosis for this admission?: Yes (4) Coronary artery disease Is this a current diagnosis for this admission?: Yes (5) COPD (chronic obstructive pulmonary disease) Is this a current diagnosis for this admission?: Yes - Plan Summary Summary: Patient has an obvious fracture that needs surgical repair the left lower extremity however patient does have a significant core cardiac history. Patient is also on anticoagulant therapy. Need to be stopped probably 48 hours prior to surgery and is being held now. Will be seen by cardiology tomorrow morning and evaluated. Explained all this to the patient he understands that this is going to be done as best we can with the records we have on hand. Patient is in no distress now. Will be fed tonight since he is not eligible for surgery tomorrow due to his Xarelto. Dr. Rich has been consulted for cardiology will see the patient in the morning 12/25/2019 Aperture is 98.5 pulse is 79 and regular. No recent tachycardia Blood pressure is his normal 91/68. Patient is normally hypotensive concerning his readings Baseline oxygen saturation is about 95% on room air Patient did not take his Xarelto yesterday or today Labs appear to be stable Coags are normal Appreciate cardiology's consult. Orthopedics to decide on timing of patient's anticipated surgery 12/26/2019 Patient's vital signs appear to be back to baseline today. Temperature 98.4 pulse 81 blood pressure 100/60 which is his normal. O2 sat between 90 to 94% on room air Labs from today are pending Patient is asking to go to rehab from discharge. I will put a consult in to discharge planning. Patient appears to be medically stable. Will resume Xarelto when orthopedics approves. 12/27/2019 Vital signs are extremely stable Patient is either on room air or 2 L nasal cannula PRN with saturations up into the upper 90s Blood pressures remained stable for this patient, with systolics in the 90s or low 100s Labs appear stable and we will not do them on a daily basis but about every third day. Patient is waiting on rehab bed. Patient is medically stable to be discharged to rehab whenever bed is available. Per orthopedics patient is to be nonweightbearing on the left lower extremity with assist device Xarelto was reinstituted last night at 1800 hrs. 12/28/2019 Patient has been seen by physical therapy. Patient is able to stand at bedside and perform some "hopping" steps although he fatigues quickly. Physical therapy was recommended even at the time of discharge -Patient and would like for him to go home now instead of rehab. Would like him to do rehab at home with physical therapy which I will order. I am going to order physical therapy occupational therapy bedside commode wheelchair and chcf , hopefully we can get him out of the hospital tomorrow Patient will need to follow-up with orthopedics as scheduled - Time Time Spent with patient: 25-34 minutes
[2019-12-28] MEDS: RIVAROXABAN 10 MG TABLET PO SCH (17:15)
[2019-12-29] MEDS: OXYCODONE-ACETAMINOPHEN 5-325 MG TABLET PO PRN ×3 (01:48→19:53)
[2019-12-29] MEDS: GABAPENTIN 100 MG CAPSULE PO SCH ×3 (05:53→21:52)
[2019-12-29] MEDS: SACUBITRIL/VALSARTAN 24 MG/26 MG TABLET PO SCH ×2 (05:53→17:53)
[2019-12-29] MEDS: PANTOPRAZOLE SODIUM 20 MG TABLET.DR PO SCH (05:53)
[2019-12-29] MEDS: SPIRONOLACTONE 25 MG TABLET PO SCH (09:46)
[2019-12-29] MEDS: METOPROLOL TARTRATE 25 MG TABLET PO SCH ×2 (09:47→21:52)
[2019-12-29] MEDS: DOCUSATE SODIUM 100 MG CAPSULE PO SCH (09:49)
[2019-12-29] MEDS: IPRATROPIUM/ALBUTEROL 0.5-2.5 MG/3 ML AMPUL NEB PRN (13:17)
[2019-12-29] MEDS: RIVAROXABAN 10 MG TABLET PO SCH (17:53)
[2019-12-30] MEDS: SACUBITRIL/VALSARTAN 24 MG/26 MG TABLET PO SCH (06:03)
[2019-12-30] MEDS: OXYCODONE-ACETAMINOPHEN 5-325 MG TABLET PO PRN (06:04)
[2019-12-30] MEDS: PANTOPRAZOLE SODIUM 20 MG TABLET.DR PO SCH (06:04)
[2019-12-30] MEDS: GABAPENTIN 100 MG CAPSULE PO SCH ×2 (06:04→13:30)
[2019-12-30] MEDS: SPIRONOLACTONE 25 MG TABLET PO SCH (10:16)
[2019-12-30] MEDS: DOCUSATE SODIUM 100 MG CAPSULE PO SCH (10:16)
[2019-12-30] MEDS: METOPROLOL TARTRATE 25 MG TABLET PO SCH (10:18)
--- NOTE | 2019-12-30 11:02 | PDOC PROGRESS REPORT ---
Subjective Progress Note for:: 12/30/19 Subjective:: Patient status post orthopedic surgery for left ankle fracture, dislocation. Doing well. Resting comfortably. No distress. No chest pain or dyspnea. Awaiting discharge Reason For Visit: DISPLACED FRACTURE OF THE MEDIAL MALLEOLUS LEFT Physical Exam Vital Signs: Temp Pulse Resp BP Pulse Ox 98.2 F 78 17 106/52 L 94 12/30/19 07:32 12/30/19 07:32 12/30/19 07:32 12/30/19 07:32 12/30/19 07:32 Intake & Output 12/29/19 12/30/19 12/31/19 06:59 06:59 06:59 Intake Total 1382 600 Output Total 350 500 Balance 1032 100 Weight 102.9 kg 99.3 kg General appearance: PRESENT: no acute distress, cooperative, obese, well- developed, well-nourished Head exam: PRESENT: atraumatic, normocephalic Eye exam: PRESENT: conjunctiva pink, EOMI Respiratory exam: PRESENT: clear to auscultation santosh, symmetrical, unlabored Cardiovascular exam: PRESENT: RRR, +S1, +S2 Pulses: PRESENT: normal radial pulses GI/Abdominal exam: PRESENT: soft Rectal exam: PRESENT: deferred Neurological exam: PRESENT: alert, awake, oriented to person, oriented to place, oriented to time, oriented to situation Psychiatric exam: PRESENT: appropriate affect Skin exam: PRESENT: dry, intact, normal color Results Laboratory Results: 12/26/19 11:23 12/26/19 11:23 12/24/19 18:57 Blood Blood Culture - Final NO GROWTH IN 5 DAYS 12/24/19 17:00 Blood Blood Culture - Final NO GROWTH IN 5 DAYS 12/24/19 17:00 CK-MB (CK-2) 1.26 Troponin I 0.022 NT-Pro-B Natriuret Pep 742 H Impressions: Knee X-Ray 12/24/19 15:50 IMPRESSION: No acute osseous abnormality of the left knee. Chest X-Ray 12/24/19 15:51 IMPRESSION: Hyperinflated lungs which can be seen with obstructive lung disease. No acute cardiopulmonary disease. Ankle X-Ray 12/25/19 00:00 IMPRESSION: IMAGE(S) OBTAINED DURING PROCEDURE. Fluoroscopy 12/25/19 00:00 IMPRESSION: IMAGE(S) OBTAINED DURING PROCEDURE. Assessment & Plan - Diagnosis (1) On anticoagulant therapy Is this a current diagnosis for this admission?: Yes Plan: Systemic anticoagulation with rivaroxaban has been re instituted. Tolerating well (2) AICD (automatic cardioverter/defibrillator) present Is this a current diagnosis for this admission?: Yes (3) Coronary artery disease Is this a current diagnosis for this admission?: Yes Plan: No ischemic symptoms Continue GDMT (4) COPD (chronic obstructive pulmonary disease) Is this a current diagnosis for this admission?: Yes Plan: Stable. Occasional wheezing. But no respiratory distress. - Notes Notes: CAD CHF ICD Right sided BIV Should follow up with pharmacy intern in 1-2 weeks.
--- NOTE | 2019-12-30 11:17 | PDOC DISCHARGE SUMMARY ---
Impression - Admit/DC Date/PCP Admission Date/Primary Care Provider: 12/24/19 18:43 MICHAEL CARBONE MD Discharge Date: 12/30/19 - Discharge Diagnosis (1) AICD (automatic cardioverter/defibrillator) present Is this a current diagnosis for this admission?: No (2) Bimalleolar fracture of left ankle Is this a current diagnosis for this admission?: Yes (3) CHF (congestive heart failure) Is this a current diagnosis for this admission?: No (4) COPD (chronic obstructive pulmonary disease) Is this a current diagnosis for this admission?: No (5) Coronary artery disease Is this a current diagnosis for this admission?: No - Assessment Summary: Patient has an obvious fracture that needs surgical repair the left lower extremity however patient does have a significant core cardiac history. Patient is also on anticoagulant therapy. Need to be stopped probably 48 hours prior to surgery and is being held now. Will be seen by cardiology tomorrow morning and evaluated. Explained all this to the patient he understands that this is going to be done as best we can with the records we have on hand. Patient is in no distress now. Will be fed tonight since he is not eligible for surgery tomorrow due to his Xarelto. Dr. Rich has been consulted for cardiology will see the patient in the morning 12/25/2019 Aperture is 98.5 pulse is 79 and regular. No recent tachycardia Blood pressure is his normal 91/68. Patient is normally hypotensive concerning his readings Baseline oxygen saturation is about 95% on room air Patient did not take his Xarelto yesterday or today Labs appear to be stable Coags are normal Appreciate cardiology's consult. Orthopedics to decide on timing of patient's anticipated surgery 12/26/2019 Patient's vital signs appear to be back to baseline today. Temperature 98.4 pulse 81 blood pressure 100/60 which is his normal. O2 sat between 90 to 94% on room air Labs from today are pending Patient is asking to go to rehab from discharge. I will put a consult in to d ischarge planning. Patient appears to be medically stable. Will resume Xarelto when orthopedics approves. 12/27/2019 Vital signs are extremely stable Patient is either on room air or 2 L nasal cannula PRN with saturations up into the upper 90s Blood pressures remained stable for this patient, with systolics in the 90s or low 100s Labs appear stable and we will not do them on a daily basis but about every third day. Patient is waiting on rehab bed. Patient is medically stable to be discharged to rehab whenever bed is available. Per orthopedics patient is to be nonweightbearing on the left lower extremity with assist device Xarelto was reinstituted last night at 1800 hrs. 12/28/2019 Patient has been seen by physical therapy. Patient is able to stand at bedside and perform some "hopping" steps although he fatigues quickly. Physical therapy was recommended even at the time of discharge -Patient and would like for him to go home now instead of rehab. Would like him to do rehab at home with physical therapy which I will order. I am going to order physical therapy occupational therapy bedside commode wheelchair and detention , hopefully we can get him out of the hospital tomorrow Patient will need to follow-up with orthopedics as scheduled 12/30/2019-patient admitted with a left ankle fracture found to have a displaced bimalleolar fracture status post open reduction internal fixation. Stable. Patient has history of AICD, congestive heart failure on Xarelto cardiology on board. Patient is back on Xarelto. He needs to follow-up with cardiology in 1 to 2 weeks time and also with the orthopedic team in 1 week time. He is going home with home health and physical therapy. He is requesting for wheelchair and commode which is going to be provided. - Additional Information Resuscitation Status: Full Code Referrals: TEMO MCGOWAN MD [ACTIVE PROVISIONAL STAFF] - (2 weeks) MICHAEL CARBONE MD [Primary Care Provider] - 01/08/20 11:00 am Home Medications: Omeprazole 20 mg PO DAILY 08/19/15 Tiotropium [place] [Spiriva Handihaler 18 mcg/dose (30 Dose)] 1 cap IH DAILY 08/19/15 Albuterol Sulfate [Proair HFA Inhalation Aerosol 8.5 gm MDI] 2 puff IH Q6HP PRN 12/24/19 Budesonide/Formoterol Fumarate [Symbicort HFA 160-4.5 mcg Inhaler 6 gm] 2 puff IH Q12 12/24/19 Gabapentin [Neurontin 100 mg Capsule] 100 mg PO Q8 12/24/19 Metoprolol Tartrate [Lopressor 50 mg Tablet] 50 mg PO QPM 12/24/19 Rivaroxaban [Xarelto] 20 mg PO QPM 12/24/19 Sacubitril/Valsartan [Entresto 24 mg/26 mg Tablet] 1 tab PO Q12 12/24/19 Spironolactone [Aldactone 25 mg Tablet] 25 mg PO QPM 12/24/19 History of Present Illiness History of Present Illness: SAUNDRA VILLEDA is a 69 year old male 69 year old male yesterday tripped while going down the stairs striking his left leg he said yesterday it was somewhat tender but today it was hurting very bad so he came to the emergency room for left leg pain. X Rays of the left leg show acute avulsion fracture of the medial malleolus and acute displaced and comminuted fracture of the distal fibula. We were asked to put the patient in for evaluation concerning surgery of his fracture and his cardiac risk.. I have called Dr. Rich the roof promenade tile setter on- call for the unassigned and he said he be glad to see the patient tomorrow morning and begin the work-up and evaluation. Patient did [facility] June 2019 reportedly. Patient had an [place] 2003 with 1 stent. Patient had AICD placed in 2016. Patient reportedly has an ejection fracture less than 30% Patient states he always runs a low blood pressure for years and years. Today in the emergency room his blood pressure 79/52 which he states is not unusual. 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 She stopped smoking 3 years ago he was at 1 pack/day patient stopped drinking alcohol in 2008. Hospital Course Hospital Course: Patient has an obvious fracture that needs surgical repair the left lower extremity however patient does have a significant core cardiac history. Patient is also on anticoagulant therapy. Need to be stopped probably 48 hours prior to surgery and is being held now. Will be seen by cardiology tomorrow morning and evaluated. Explained all this to the patient he understands that this is going to be done as best we can with the records we have on hand. Patient is in no distress now. Will be fed tonight since he is not eligible for surgery tomorrow due to his Xarelto. Dr. Rich has been consulted for cardiology will see the patient in the morning 12/25/2019 Aperture is 98.5 pulse is 79 and regular. No recent tachycardia Blood pressure is his normal 91/68. Patient is normally hypotensive concerning his readings Baseline oxygen saturation is about 95% on room air Patient did not take his Xarelto yesterday or today Labs appear to be stable Coags are normal Appreciate cardiology's consult. Orthopedics to decide on timing of patient's anticipated surgery 12/26/2019 Patient's vital signs appear to be back to baseline today. Temperature 98.4 pulse 81 blood pressure 100/60 which is his normal. O2 sat between 90 to 94% on room air Labs from today are pending Patient is asking to go to rehab from discharge. I will put a consult in to discharge planning. Patient appears to be medically stable. Will resume Xarelto when orthopedics approves. 12/27/2019 Vital signs are extremely stable Patient is either on room air or 2 L nasal cannula PRN with saturations up into the upper 90s Blood pressures remained stable for this patient, with systolics in the 90s or low 100s Labs appear stable and we will not do them on a daily basis but about every third day. Patient is waiting on rehab bed. Patient is medically stable to be discharged to rehab whenever bed is available. Per orthopedics patient is to be nonweightbearing on the left lower extremity with assist device Xarelto was reinstituted last night at 1800 hrs. 12/28/2019 Patient has been seen by physical therapy. Patient is able to stand at bedside and perform some "hopping" steps although he fatigues quickly. Physical therapy was recommended even at the time of discharge -Patient and would like for him to go home now instead of rehab. Would like him to do rehab at home with physical therapy which I will order. I am going to order physical therapy occupational therapy bedside commode wheelchair and detention , hopefully we can get him out of the hospital tomorrow Patient will need to follow-up with orthopedics as scheduled 12/29/19-patient is doing well. No acute events in the last 24 hours. Afebrile. Left leg wrapped in [place] wrap. Patient was seen by Dr. Hilario morrison he is going home on Xarelto. Patient is advised to follow-up with cardiology 1 to 2 weeks time and also with Ortho team. Is going home with home health and home physical therapy. Is also receiving wheelchair and bedside commode. Physical Exam Vital Signs: Temp Pulse Resp BP Pulse Ox 98.2 F 78 17 106/52 L 94 12/30/19 07:32 12/30/19 07:32 12/30/19 07:32 12/30/19 07:32 12/30/19 07:32 Intake & Output 12/29/19 12/30/19 12/31/19 06:59 06:59 06:59 Intake Total 1382 600 Output Total 350 500 Balance 1032 100 Weight 102.9 kg 99.3 kg General appearance: PRESENT: no acute distress, well-developed Head exam: PRESENT: atraumatic Eye exam: PRESENT: PERRLA Mouth exam: PRESENT: moist, tongue midline Neck exam: ABSENT: carotid bruit, JVD, lymphadenopathy, thyromegaly Respiratory exam: PRESENT: decreased breath sounds, other - AICD present.. ABSENT: rales, rhonchi, wheezes Cardiovascular exam: PRESENT: RRR. ABSENT: diastolic murmur, rubs, systolic murmur Pulses: PRESENT: normal dorsalis pedis pul GI/Abdominal exam: PRESENT: normal bowel sounds, soft. ABSENT: distended, guarding, mass, organolmegaly, rebound, tenderness Rectal exam: PRESENT: deferred Extremities exam: PRESENT: other - Left lower leg wrapped in dressing. Neurological exam: PRESENT: alert, awake, oriented to person, oriented to place, oriented to time, oriented to situation, CN II-XII grossly intact. ABSENT: motor sensory deficit Psychiatric exam: PRESENT: appropriate affect, normal mood. ABSENT: homicidal ideation, suicidal ideation Results Laboratory Results: WBC 11.4 10^3/uL (4.0-10.5) H 12/26/19 11:23 RBC 3.96 10^6/uL (4.35-5.55) L 12/26/19 11:23 Hgb 11.8 g/dL (13.5-17.0) L 12/26/19 11:23 Hct 35.7 % (37.9-51.0) L 12/26/19 11:23 MCV 90 fl (80-97) 12/26/19 11:23 MCH 29.8 pg (27.0-33.4) 12/26/19 11:23 MCHC 33.1 g/dL (32.0-36.0) 12/26/19 11:23 RDW 16.9 % (11.5-14.0) H 12/26/19 11:23 Plt Count 137 10^3/uL (150-450) L 12/26/19 11:23 Lymph % (Auto) 11.3 % (13-45) L 12/26/19 11:23 [place] % (Auto) 10.2 % (3-13) 12/26/19 11:23 Eos % (Auto) 0.8 % (0-6) 12/26/19 11:23 Baso % (Auto) 0.4 % (0-2) 12/26/19 11:23 Absolute Neuts (auto) 8.8 10^3/uL (1.7-8.2) H 12/26/19 11:23 Absolute Lymphs (auto) 1.3 10^3/uL (0.5-4.7) 12/26/19 11:23 Absolute Monos (auto) 1.2 10^3/uL (0.1-1.4) 12/26/19 11:23 Absolute Eos (auto) 0.1 10^3/uL (0.0-0.6) 12/26/19 11:23 Absolute Basos (auto) 0.1 10^3/uL (0.0-0.2) 12/26/19 11:23 Seg Neutrophils % 77.3 % (42-78) 12/26/19 11:23 PT 14.2 SEC (11.4-15.4) 12/24/19 17:00 INR 1.10 12/24/19 17:00 APTT 29.8 SEC (23.5-35.8) 12/25/19 04:17 Sodium 136.7 mmol/L (137-145) L 12/26/19 11:23 Potassium 4.2 mmol/L (3.6-5.0) 12/26/19 11:23 Chloride 100 mmol/L (98-107) 12/26/19 11:23 Carbon Dioxide 25 mmol/L (22-30) 12/26/19 11:23 Anion Gap 12 (5-19) 12/26/19 11:23 BUN 23 mg/dL (7-20) H 12/26/19 11:23 Creatinine 1.22 mg/dL (0.52-1.25) 12/26/19 11:23 Est GFR ( Amer) > 60 (>60) 12/26/19 11:23 Est GFR (MDRD) Non-Af 59 (>60) L 12/26/19 11:23 Glucose 101 mg/dL (75-110) 12/26/19 11:23 Calcium 8.2 mg/dL (8.4-10.2) L 12/26/19 11:23 Magnesium 1.6 mg/dL (1.6-2.3) 12/25/19 04:17 Total Bilirubin 1.8 mg/dL (0.2-1.3) H 12/24/19 17:00 Direct Bilirubin 0.0 mg/dL (0.0-0.4) 12/24/19 17:00 Neonat Total Bilirubin Not Reportable 12/24/19 17:00 Neonat Direct Bilirubin Not Reportable 12/24/19 17:00 Neonat Indirect Bili Not Reportable 12/24/19 17:00 AST 25 U/L (17-59) 12/24/19 17:00 ALT 17 U/L (<50) 12/24/19 17:00 Alkaline Phosphatase 70 U/L (38-126) 12/24/19 17:00 CK-MB (CK-2) 1.26 ng/mL (<4.55) 12/24/19 17:00 Troponin I 0.022 ng/mL 12/24/19 17:00 NT-Pro-B Natriuret Pep 742 pg/mL (<125) H 12/24/19 17:00 Total Protein 7.5 g/dL (6.3-8.2) 12/24/19 17:00 Albumin 4.0 g/dL (3.5-5.0) 12/24/19 17:00 Urine Color GENO 12/24/19 20:50 Urine Appearance CLEAR 12/24/19 20:50 Urine pH 5.0 (5.0-9.0) 12/24/19 20:50 Ur Specific [place] 1.021 12/24/19 20:50 Urine Protein NEGATIVE mg/dL (NEGATIVE) 12/24/19 20:50 Urine Glucose (UA) NEGATIVE mg/dL (NEGATIVE) 12/24/19 20:50 Urine Ketones NEGATIVE mg/dL (NEGATIVE) 12/24/19 20:50 Urine Blood NEGATIVE (NEGATIVE) 12/24/19 20:50 Urine Nitrite (Reflex) NEGATIVE (NEGATIVE) 12/24/19 20:50 Urine Bilirubin NEGATIVE (NEGATIVE) 12/24/19 20:50 Urine Urobilinogen NEGATIVE mg/dL (<2.0) 12/24/19 20:50 Leukocyte Esterase Rfl SMALL (NEGATIVE) H 12/24/19 20:50 Urine RBC (Auto) 1 /HPF 12/24/19 20:50 U Hyaline Cast (Auto) 1 /LPF 12/24/19 20:50 Urine WBC (Reflex) 10 /HPF 12/24/19 20:50 Squamous Epi Cells Auto <1 /HPF 12/24/19 20:50 Urine Mucus (Auto) RARE /LPF 12/24/19 20:50 Urine Ascorbic Acid NEGATIVE (NEGATIVE) 12/24/19 20:50 12/24/19 17:00 CK-MB (CK-2) 1.26 Troponin I 0.022 NT-Pro-B Natriuret Pep 742 H Impressions: Ankle X-Ray 12/24/19 15:50 IMPRESSION: 1. Acute avulsion fracture of the medial malleolus. 2. Acute displaced and comminuted fracture of the distal fibula. Knee X-Ray 12/24/19 15:50 IMPRESSION: No acute osseous abnormality of the left knee. Chest X-Ray 12/24/19 15:51 IMPRESSION: Hyperinflated lungs which can be seen with obstructive lung disease. No acute cardiopulmonary disease. Ankle X-Ray 12/25/19 00:00 IMPRESSION: IMAGE(S) OBTAINED DURING PROCEDURE. Fluoroscopy 12/25/19 00:00 IMPRESSION: IMAGE(S) OBTAINED DURING PROCEDURE. Plan Plan of Treatment: Patient is going home with home health and home physical therapy. Wheelchair and bedside commode will be provided. Strongly advised to follow-up with orthopedic team in 1 week time and also with cardiology in 1 to 2 weeks time. Patient agreed and verbalized response. Time Spent: Greater than 30 Minutes Stroke Is this a Stroke Patient?: No Acute Heart Failure - Is this a Heart Failure Patient?: No
[2019-12-30 15:12] VITALS: BP 88/40
== END 2019-12-30 15:44 | disposition home health service (06) | DRG 494 ==
LOC: ER 15:15 → EH 18:43 → 4N 20:48
PROVIDERS: ADMIT Hospitalist; ATTEND Hospitalist
PROC: 0QSH04Z Reposition Left Tibia with Internal Fixation Device, Open Approach (ICD-10-PCS; 2019-12-25)
PROC: 0QSK04Z Reposition Left Fibula with Internal Fixation Device, Open Approach (ICD-10-PCS; principal; 2019-12-25 15:30)
DX: S82.402A Unspecified fracture of shaft of left fibula, initial encounter for closed fracture (principal); S82.52XA Displaced fracture of medial malleolus of left tibia, initial encounter for closed fracture; M25.572 Pain in left ankle and joints of left foot; I48.91 Unspecified atrial fibrillation; I50.9 Heart failure, unspecified; J44.9 Chronic obstructive pulmonary disease, unspecified; E78.00 Pure hypercholesterolemia, unspecified; K21.9 Gastro-esophageal reflux disease without esophagitis; I25.2 Old myocardial infarction; W10.8XXA Fall (on) (from) other stairs and steps, initial encounter; Y93.89 Activity, other specified; Y92.018 Other place in single-family (private) house as the place of occurrence of the external cause; Z79.51 Long term (current) use of inhaled steroids; Z79.52 Long term (current) use of systemic steroids; Z79.899 Other long term (current) drug therapy; Z95.810 Presence of automatic (implantable) cardiac defibrillator; Z79.01 Long term (current) use of anticoagulants
CPT/HCPCS: 01480; 36415; 71046; 80048; 80053; 81001; 82553; 83735; 83880; 84484; 85025; 85610; 85730; 87040; 87086; 90471; 90715; 93005; 93010; 96360; 99284; C1713; J0171; J0690; J1940; J2250; J2704; J3010; J3490; J7030; J7040; J7060; J7620; S0119